=== PATIENT | female | born 1960 | race African-American/Black ===

== ENCOUNTER 2016-07-04 17:28 | Inpatient (IN) | payer MEDICARE, MEDICAID ==
[~2016-07-04] VITALS: Ht 160 cm; Wt 79.0 kg
[~2016-07-04 17:28] MED LIST: ATEN50TA PO; BACL20TA PO; DICL75TA2 PO; GABA300C8 PO; HYDR-4072 PO; LOSA50TA6 PO; METF-314 PO; SIMV-8 PO
[2016-07-04 18:11] LABS: Basophils # (auto) 0.1 uL; Eosinophils # (auto) 0.2 uL; Hemoglobin 14.3 g/dL (12.2-16.2); Mean Corpuscular Hemoglobin 31.3 pg (28.0-32.0); Mean Corpuscular Hgb Conc. 32.3 g/dL (32.0-36.0)
[2016-07-04] MEDS ORDERED: SODIUM CHLORIDE 0.9% 1,000 ML IV ONE (18:25)
[2016-07-04 18:29] LABS: Albumin 3.8 g/dL (3.4-5.0); BUN/Creatinine Ratio 13.2; Calcium 10.1 mg/dL (8.5-10.1); Potassium 4.3 mmol/L (3.5-5.1)
[2016-07-04 18:30] LABS: Basophils % (auto) 0.9 % (0.0-2.0); Eosinophils % (auto) 2.3 % (0.0-7.0); Hematocrit 44.3 % (36.0-46.0); Lymphocytes # (auto) 4.7 uL; Lymphocytes % (auto) 49.6 % (10.0-50.0); Mean Corpuscular Volume 96.8 fL (80.0-100.0); Mean Platelet Volume 8.6 fL (7.4-10.4); Monocytes # (auto) 0.6 uL; Monocytes % (auto) 6.3 % (0.0-12.0); Neutrophils # (auto) 3.9 uL; Neutrophils % (auto) 40.9 % (37.0-80.0); Platelet Count (auto) 307 10^3/uL (140-450); Red Cell Distribution Width 15.4 % (11.6-16.0); White Blood Cell 9.6 10^3/uL (4.4-10.8)
[2016-07-04] MEDS ORDERED: metroNIDAZOLE 500 MG TAB PO ONE (18:30)
[2016-07-04] MEDS ORDERED: PIPERACILLIN-TAZOB 3.375GM 100 ML IV ONE (18:30)
[2016-07-04 18:31] LABS: Bilirubin, Total 0.3 mg/dL (0.2-1.0); Total Protein 7.1 g/dL (6.4-8.2)
[2016-07-04 18:42] LABS: Urine Bilirubin Negative (Negative); Urine Blood Negative /uL (Negative); Urine Color Yellow (Yellow); Urine Ketone Negative (Negative); Urine Nitrite Negative (Negative); Urine RBC 1 /hpf (0 - 4); Urine Squamous Epithelial Cell FEW /hpf (<5); Urine Urobilinogen Normal (Negative)
[2016-07-04 18:48] LABS: Urine Glucose 4+ mg/dL (Normal)
[2016-07-04] MEDS ORDERED: HYDROcodone-ACET 5/325MG TAB PO ONE (20:00)
[2016-07-04 20:36] LABS: REFLEX LACTIC ACID YES OR NO YES
[2016-07-04] MEDS: SODIUM CHLORIDE 0.9% 1,000 ML IV SCH (21:09)
[2016-07-04] MEDS: ENOXAPARIN SOD 30 MG/0.3 ML SYRINGE SC SCH (21:14)
[2016-07-04] MEDS ORDERED: DEXTROSE (50%) 50ML SYRG IV PRN (21:15)
[2016-07-04] MEDS ORDERED: HYDROmorphone HCL 2 MG/ML VL IV ONE (21:15)
[2016-07-04] MEDS ORDERED: LACTULOSE 20Gm/30ML SOLN PO PRN (21:15)
[2016-07-04] MEDS ORDERED: ONDANSETRON HCL 4 MG/2 ML VIAL IV PRN (21:15)
[2016-07-04] MEDS ORDERED: VANCOMYCIN 1GM/250ML D5W 250 ML IV ONE (21:15)
[2016-07-04] MEDS ORDERED: VANCOMYCIN PER PHARMACY 0 MG IV SCH (21:15)
[2016-07-04] MEDS ORDERED: BACLOFEN 10 MG TAB PO PRN (21:15)
[2016-07-04] MEDS: VANCOMYCIN 1GM/250ML D5W 250 ML IV SCH (21:44)
[2016-07-04] MEDS: GABAPENTIN 300 MG CAP PO SCH (21:44)
[2016-07-04] MEDS: ATORVASTATIN 20 MG TAB PO SCH (21:44)
[2016-07-04 22:09] LABS: Lactic Acid 3.7 mmol/L (0.4-2.0)
[2016-07-04 22:32] LABS: REFLEX LACTIC ACID YES OR NO YES
[2016-07-04 23:00] VITALS: BP 125/83
[2016-07-05 00:16] VITALS: BP 125/83
[2016-07-05] MEDS: PIPERACILLIN-TAZOB 2.25GM 50 ML IV SCH ×4 (01:21→19:00)
[2016-07-05] MEDS: HYDROmorphone HCL 2 MG/ML VL IV PRN ×5 (03:48→23:13)
[2016-07-05 05:56] VITALS: BP 99/74
[2016-07-05] MEDS: InsuLIN REG 1unit/0.01ml Soln (100units/ml) SC SCH ×4 (06:00→18:00)
[2016-07-05] MEDS: ACCU-CHEK COMFORT CURVE STRIP VI SCH ×4 (06:00→18:16)
[2016-07-05 06:30] LABS: Potassium 3.7 mmol/L (3.5-5.1)
[2016-07-05] MEDS: GABAPENTIN 300 MG CAP PO SCH ×3 (06:30→22:34)
[2016-07-05 06:36] LABS: Albumin 3.3 g/dL (3.4-5.0); BUN/Creatinine Ratio 13.7; Calcium 9.1 mg/dL (8.5-10.1)
[2016-07-05 06:38] LABS: Bilirubin, Total 0.6 mg/dL (0.2-1.0); Total Protein 6.1 g/dL (6.4-8.2)
[2016-07-05 06:43] LABS: Basophils # (auto) 0 uL; Basophils % (auto) 0.5 % (0.0-2.0); Eosinophils # (auto) 0.2 uL; Eosinophils % (auto) 2.6 % (0.0-7.0); Hemoglobin 13.1 g/dL (12.2-16.2); Lymphocytes % (auto) 51.6 % (10.0-50.0); Mean Corpuscular Hemoglobin 31.5 pg (28.0-32.0); Mean Corpuscular Hgb Conc. 32.8 g/dL (32.0-36.0); Mean Platelet Volume 8.2 fL (7.4-10.4); Monocytes # (auto) 0.8 uL; Monocytes % (auto) 10.2 % (0.0-12.0); Neutrophils # (auto) 2.7 uL; Neutrophils % (auto) 35.1 % (37.0-80.0); Platelet Count (auto) 256 10^3/uL (140-450); Red Cell Distribution Width 15.6 % (11.6-16.0); White Blood Cell 7.8 10^3/uL (4.4-10.8)
[2016-07-05 07:38] VITALS: BP 103/59
[2016-07-05] MEDS: VANCOMYCIN 1GM/250ML D5W 250 ML IV SCH ×2 (09:51→22:34)
[2016-07-05] MEDS: LOSARTAN POTASSIUM 50 MG TAB PO SCH (09:53)
[2016-07-05] MEDS: ENOXAPARIN SOD 30 MG/0.3 ML SYRINGE SC SCH (09:54)
[2016-07-05] MEDS: ATENOLOL 50 MG TAB PO SCH (09:54)
[2016-07-05] MEDS: SODIUM CHLORIDE 0.9% 1,000 ML IV SCH ×2 (10:06→22:35)
[2016-07-05 12:00] VITALS: BP 109/89
[2016-07-05] MEDS ORDERED: ASPirin 81 mg TAB PO ONE ×2 (14:30→15:00)
[2016-07-05] MEDS ORDERED: ASCORBIC ACID 500 MG TAB PO ONE (15:00)
[2016-07-05] MEDS: HYDROcodone-ACET 5/325MG TAB PO PRN ×2 (16:40→21:11)
[2016-07-05 16:57] VITALS: BP 94/60
[2016-07-05] MEDS: INSULIN 70/30 1unit/0.01ml Susp (100units/ml) SC SCH (18:22)
[2016-07-05] MEDS ORDERED: PROM25TA5 OR (19:47)
[2016-07-05] MEDS ORDERED: MIRT30TA OR (19:47)
[2016-07-05] MEDS ORDERED: DIPH25CA66 PO (19:47)
[2016-07-05] MEDS ORDERED: ALPR2TAB2 PO (19:47)
[2016-07-05] MEDS: ATORVASTATIN 20 MG TAB PO SCH (22:34)
[2016-07-06] MEDS: ACCU-CHEK COMFORT CURVE STRIP VI SCH ×5 (00:03→22:25)
[2016-07-06] MEDS: PIPERACILLIN-TAZOB 2.25GM 50 ML IV SCH ×2 (03:24→06:33)
[2016-07-06] MEDS: HYDROmorphone HCL 2 MG/ML VL IV PRN ×5 (03:27→20:48)
[2016-07-06 05:10] VITALS: BP 92/71
[2016-07-06] MEDS: InsuLIN REG 1unit/0.01ml Soln (100units/ml) SC SCH ×5 (06:30→22:25)
[2016-07-06] MEDS: GABAPENTIN 300 MG CAP PO SCH ×3 (06:32→20:49)
[2016-07-06 08:06] LABS: Hematocrit 38.4 % (36.0-46.0); Hemoglobin 12.2 g/dL (12.2-16.2); Mean Corpuscular Hemoglobin 30.7 pg (28.0-32.0); Mean Corpuscular Hgb Conc. 31.7 g/dL (32.0-36.0); Mean Platelet Volume 8.2 fL (7.4-10.4); Platelet Count (auto) 228 10^3/uL (140-450); Red Cell Distribution Width 15.7 % (11.6-16.0); White Blood Cell 5.9 10^3/uL (4.4-10.8)
[2016-07-06 08:10] LABS: Metamyelocytes % 0; Myelocytes % 0; Promyelocytes % 0; Reactive Lymphocytes 0
[2016-07-06] MEDS: INSULIN 70/30 1unit/0.01ml Susp (100units/ml) SC SCH (08:21)
[2016-07-06 08:34] LABS: Calcium 8.5 mg/dL (8.5-10.1); Potassium 3.7 mmol/L (3.5-5.1)
[2016-07-06 09:00] VITALS: BP 91/55
[2016-07-06] MEDS: ATENOLOL 50 MG TAB PO SCH (10:00)
[2016-07-06] MEDS: LOSARTAN POTASSIUM 50 MG TAB PO SCH (10:00)
[2016-07-06] MEDS: ASCORBIC ACID 500 MG TAB PO SCH (10:27)
[2016-07-06] MEDS: ASPirin 81 mg TAB PO SCH (10:27)
[2016-07-06] MEDS: MULTIPLE VITAMIN TAB PO SCH (10:27)
[2016-07-06] MEDS: VANCOMYCIN 1GM/250ML D5W 250 ML IV SCH ×2 (10:27→20:54)
[2016-07-06] MEDS: ENOXAPARIN SOD 30 MG/0.3 ML SYRINGE SC SCH (10:27)
[2016-07-06] MEDS: SODIUM CHLORIDE 0.9% 1,000 ML IV SCH (10:32)
[2016-07-06 10:40] LABS: Platelet Estimate Adequate; RBC Morphology Normal
[2016-07-06 11:03] VITALS: BP 91/55
[2016-07-06] MEDS ORDERED: cefTRIAXone 1GM/50ML D5W 50 ML IV ONE (12:00)
[2016-07-06 13:00] VITALS: BP 134/85
[2016-07-06 13:14] LABS: INR 1.04 (0.9-1.15); Partial Thromboplastin Time 27.5 sec (22.64-33.71); Prothrombin Time 10.7 sec (9.37-12.3)
[2016-07-06] MEDS: HYDROcodone-ACET 5/325MG TAB PO PRN ×2 (15:28→22:28)
[2016-07-06 17:00] VITALS: BP 138/54
[2016-07-06] MEDS: ATORVASTATIN 20 MG TAB PO SCH (20:49)
[2016-07-06 22:21] VITALS: BP 148/91
[2016-07-06] MEDS: INSULIN DETEMIR(LEVEMIR) 1unit/0.01ml Soln (100units/ml) SC SCH (22:24)
[2016-07-07] MEDS: HYDROmorphone HCL 2 MG/ML VL IV PRN ×2 (00:47→05:05)
[2016-07-07] MEDS: HYDROcodone-ACET 5/325MG TAB PO PRN ×2 (02:59→09:07)
[2016-07-07 05:11] VITALS: BP 113/78
[2016-07-07] MEDS: InsuLIN REG 1unit/0.01ml Soln (100units/ml) SC SCH (06:00)
[2016-07-07] MEDS: ACCU-CHEK COMFORT CURVE STRIP VI SCH (06:19)
[2016-07-07] MEDS: GABAPENTIN 300 MG CAP PO SCH (06:19)
[2016-07-07 09:00] VITALS: BP 133/70
[2016-07-07] MEDS ORDERED: cefTRIAXone 1GM/50ML D5W 50 ML IV SCH (09:00)
[2016-07-07] MEDS: ASPirin 81 mg TAB PO SCH (09:07)
[2016-07-07] MEDS: ASCORBIC ACID 500 MG TAB PO SCH (09:07)
[2016-07-07] MEDS: MULTIPLE VITAMIN TAB PO SCH (09:07)
[2016-07-07] MEDS: VANCOMYCIN 1GM/250ML D5W 250 ML IV SCH (09:08)
[2016-07-07] MEDS: INSULIN DETEMIR(LEVEMIR) 1unit/0.01ml Soln (100units/ml) SC SCH (09:17)
[2016-07-07 12:56] VITALS: BP_SYST 134; BP_SYST 138; BP_DIAS 75
== END 2016-07-07 14:21 | disposition home or self-care (01) | DRG 638 ==
LOC: ER 17:31 → TELE 17:32 → TELE-EAST 23:03 → EAST 07-06 19:00
PROVIDERS: ADMIT Family Medicine; ATTEND Family Medicine
DX: E10.621 Type 1 diabetes mellitus with foot ulcer (principal); L97.429 Non-pressure chronic ulcer of left heel and midfoot with unspecified severity; L03.116 Cellulitis of left lower limb; E10.10 Type 1 diabetes mellitus with ketoacidosis without coma; E78.00 Pure hypercholesterolemia, unspecified; E78.5 Hyperlipidemia, unspecified; F17.210 Nicotine dependence, cigarettes, uncomplicated; F20.9 Schizophrenia, unspecified; G89.4 Chronic pain syndrome; F32.9 Major depressive disorder, single episode, unspecified; F41.9 Anxiety disorder, unspecified; I10 Essential (primary) hypertension; J44.9 Chronic obstructive pulmonary disease, unspecified; J45.909 Unspecified asthma, uncomplicated; E10.40 Type 1 diabetes mellitus with diabetic neuropathy, unspecified; Z87.442 Personal history of urinary calculi; L89.629 Pressure ulcer of left heel, unspecified stage; Z91.19 Patient's noncompliance with other medical treatment and regimen; Z88.8 Allergy status to other drugs, medicaments and biological substances; Z79.899 Other long term (current) drug therapy; Z98.51 Tubal ligation status
CPT/HCPCS: 36415; 71010; 80048; 80053; 80202; 81001; 82962; 83036; 83605; 84484; 85007; 85025; 85027; 85610; 85730; 87040; 93923; 96365; 96375; J0696; J1815; J2543

== ENCOUNTER 2017-07-08 11:04 | Emergency (ER) | payer MEDICARE, MEDICAID ==
[~2017-07-08] VITALS: Ht 160 cm; Wt 59.0 kg
[~2017-07-08 11:04] MED LIST changes: +ALPR2TAB2 PO; -ATEN50TA PO; -DICL75TA2 PO; +DIPH25CA66 PO; +GABA300C10 PO; -GABA300C8 PO; -HYDR-4072 PO; +HYDR-4683 PO; +HYDR2TAB58 PO; +LEVO250T45 PO; +MET50T PO; -METF-314 PO; +METF-371 PO; +MIRT30TA OR; +PROM25TA5 OR; +SACC250C PO
[2017-07-08] MEDS ORDERED: SODIUM CHLORIDE 0.9% 1,000 ML IV ONE (11:10)
[2017-07-08] MEDS ORDERED: KETOROLAC TROMETH 30 MG/ML 1ML VIAL IV ONE (11:15)
[2017-07-08 11:21] VITALS: BP 179/103
[2017-07-08 12:30] LABS: Basophils # (auto) 0 uL; Basophils % (auto) 0.6 % (0.0-2.0); Eosinophils # (auto) 0.1 uL; Eosinophils % (auto) 1.7 % (0.0-7.0); Hematocrit 35.2 % (36.0-46.0); Hemoglobin 11.7 g/dL (12.2-16.2); Lymphocytes # (auto) 2.6 uL; Lymphocytes % (auto) 39.6 % (10.0-50.0); Mean Corpuscular Hemoglobin 31.9 pg (28.0-32.0); Mean Corpuscular Hgb Conc. 33.1 g/dL (32.0-36.0); Mean Corpuscular Volume 96.1 fL (80.0-100.0); Monocytes # (auto) 0.4 uL; Monocytes % (auto) 6.6 % (0.0-12.0); Neutrophils # (auto) 3.4 uL; Neutrophils % (auto) 51.5 % (37.0-80.0); Nucleated Red Blood Cells % 0.1 %; Platelet Count (auto) 214 10^3/uL (140-450); Red Blood Cells 3.67 10^6/uL (4.0-5.20); White Blood Cell 6.7 10^3/uL (4.4-10.8)
[2017-07-08 12:51] LABS: Urine Amorphous Crystal FEW /hpf (None Seen); Urine Bacteria FEW /hpf (None Seen); Urine Blood Negative /uL (Negative); Urine Specific Gravity 1.018 (1.001-1.035); Urine WBC 8 /hpf (0 - 5)
[2017-07-08 13:10] LABS: Anion Gap 10 (5-15); Blood Urea Nitrogen 7 mg/dL (7-18); Carbon Dioxide 25 mmol/L (21-32); Chloride 111 mmol/L (98-107); Glucose 155 mg/dL (74-106); Potassium 3.7 mmol/L (3.5-5.1); Sodium 146 mmol/L (136-145)
[2017-07-08 13:11] LABS: Alanine Aminotransferase 10 U/L (13-56); Alkaline Phosphatase 68 U/L (45-117); Aspartate Aminotransferase 6 U/L (15-37); BUN/Creatinine Ratio 8.9; Bilirubin, Total 0.3 mg/dL (0.2-1.0); Calcium 8.7 mg/dL (8.5-10.1); GFR African American 96 mL/min; GFR Non-African American 79 mL/min
[2017-07-08 13:12] LABS: Albumin 2.9 g/dL (3.4-5.0)
[2017-07-08] MEDS ORDERED: HYDROcodone-ACET 10/325MG TAB PO ONE (13:30)
== END 2017-07-08 13:46 | disposition home or self-care (01) ==
LOC: EDBD 11:04 → ER 11:04
DX: R53.1 Weakness (principal); N61.0 Mastitis without abscess; G89.4 Chronic pain syndrome; J44.9 Chronic obstructive pulmonary disease, unspecified; E11.9 Type 2 diabetes mellitus without complications; I10 Essential (primary) hypertension; F17.210 Nicotine dependence, cigarettes, uncomplicated; Z98.51 Tubal ligation status; Z91.040 Latex allergy status; Z88.6 Allergy status to analgesic agent; Z79.899 Other long term (current) drug therapy
CPT/HCPCS: 36415; 71045; 80053; 81001; 83735; 84484; 85025; 93005; 94761; 96361; 96374; 99285; J1885; J7030

== ENCOUNTER 2018-09-19 18:19 | Inpatient (IN) | payer OTHER, MEDICAID ==
[~2018-09-19] VITALS: Ht 157.5 cm; Wt 64.4 kg
[~2018-09-19 18:19] MED LIST changes: +LEVO250T19 PO; -LEVO250T45 PO; +LOSA-46 PO; -LOSA50TA6 PO
[2018-09-19] MEDS ORDERED: VANCOMYCIN 1GM/250ML 250 ML IV ONE (22:45)
[2018-09-19 23:05] LABS: Urine Bacteria NONE SEEN /hpf (None Seen); Urine Blood Negative /uL (Negative); Urine Specific Gravity 1.019 (1.001-1.035); Urine WBC 6 /hpf (0 - 5)
[2018-09-19 23:19] LABS: Alcohol, Urine < 3.0 mg/dL (0-5); Amphetamine Screen, Urine NEGATIVE (NEGATIVE); Barbiturate Scree,Urine NEGATIVE (NEGATIVE); Benzodiazephine Screen, Urine POSITIVE (NEGATIVE); Cannabinoid Screen, Urine NEGATIVE (NEGATIVE); Cocaine Screen, Urine NEGATIVE (NEGATIVE); Opiate Scree,Urine POSITIVE (NEGATIVE); Phencyclidine Screen, Urine NEGATIVE (NEGATIVE)
[2018-09-19 23:41] LABS: Basophils # (auto) 0.1 uL; Basophils % (auto) 0.9 % (0.0-2.0); Eosinophils # (auto) 0.1 uL; Eosinophils % (auto) 1.4 % (0.0-7.0); Hematocrit 46.9 % (36.0-46.0); Hemoglobin 15.4 g/dL (12.2-16.2); Lymphocytes # (auto) 1.9 uL; Lymphocytes % (auto) 29.5 % (10.0-50.0); Mean Corpuscular Hemoglobin 32.9 pg (28.0-32.0); Mean Corpuscular Hgb Conc. 32.8 g/dL (32.0-36.0); Mean Corpuscular Volume 100.2 fL (80.0-100.0); Monocytes # (auto) 0.6 uL; Monocytes % (auto) 8.5 % (0.0-12.0); Neutrophils # (auto) 3.9 uL; Neutrophils % (auto) 59.7 % (37.0-80.0); Platelet Count (auto) 236 10^3/uL (140-450); Red Blood Cells 4.69 10^6/uL (4.0-5.20); Red Cell Distribution Width 14.3 % (11.8-14.3); White Blood Cell 6.5 10^3/uL (4.4-10.8)
[2018-09-20 00:03] LABS: Albumin 3.5 g/dL (3.4-5.0); BUN/Creatinine Ratio 7.1; Calcium 10.2 mg/dL (8.5-10.1); Potassium 4.3 mmol/L (3.5-5.1)
[2018-09-20 00:06] LABS: Bilirubin, Total 0.8 mg/dL (0.2-1.0); Total Protein 7.6 g/dL (6.4-8.2)
[2018-09-20] MEDS ORDERED: ACETAMINOPHEN 500 MG TAB PO PRN (01:45)
[2018-09-20] MEDS ORDERED: DEXTROSE (50%) 50ML SYRG IV PRN (01:45)
[2018-09-20] MEDS ORDERED: ONDANSETRON HCL 4 MG/2 ML VIAL IV PRN (01:45)
[2018-09-20] MEDS ORDERED: cloNIDine HCL 0.1 MG TAB PO PRN (01:45)
[2018-09-20] MEDS ORDERED: VANCOMYCIN PER PHARMACY 0 MG IV SCH (01:45)
[2018-09-20 03:15] VITALS: BP 111/75
--- NOTE | 2018-09-20 03:15 | NUR ---
MedSurg admit from FABIANO [facility] admitted to MedSurg unit, No SBAR received. Patient oriented to Annemarie Humphrey, primary RN, unit, room, bed, and unit policies regarding patient care and visiting hours. No S/S of distress or SOB noted, pain reported of 10/10 in Left leg, will medicate per MD orders. Respirations are even and unlabored. Updated pt. on POC and instructed to call for assistance as needed, pt. verbalized understanding. Bed locked in lowest position, side rails up x2, call light within reach. Will continue to monitor Q1HR and PRN.
--- NOTE | 2018-09-20 04:00 | NUR ---
Wound care photos taken of Left leg.
[2018-09-20] MEDS: HYDROcodone-ACET 5/325MG TAB PO PRN ×3 (04:35→20:07)
[2018-09-20] MEDS: ALPRAZolam 0.5 MG TAB PO PRN ×2 (04:35→12:53)
[2018-09-20 05:00] VITALS: BP 111/75
[2018-09-20] MEDS: GABAPENTIN 300 MG CAP PO SCH ×3 (06:20→21:48)
[2018-09-20] MEDS: ACCU-CHEK COMFORT CURVE STRIP VI SCH ×4 (06:20→21:55)
[2018-09-20] MEDS: InsuLIN REG 1unit/0.01ml Soln (100units/ml) SC SCH ×4 (06:22→21:50)
--- NOTE | 2018-09-20 07:50 | NUR ---
Opening Shift Note Assumed care of patient, patient sleeping. No S/S of distress/SOB or pain. Will continue to monitor for changes Q1hr and PRN. Bed in lowest locked position, call light within reach.
[2018-09-20 08:00] VITALS: BP 116/81
[2018-09-20] MEDS: cefTRIAXone 1GM/50ML D5W 50 ML IV SCH (09:23)
[2018-09-20] MEDS: LOSARTAN POTASSIUM 50 MG TAB PO SCH (09:26)
[2018-09-20] MEDS: METOPROLOL TARTRATE 50 MG TAB PO SCH ×2 (09:27→21:49)
[2018-09-20 10:47] LABS: Basophils # (auto) 0 uL; Basophils % (auto) 0.7 % (0.0-2.0); Eosinophils # (auto) 0.1 uL; Eosinophils % (auto) 1.2 % (0.0-7.0); Hemoglobin 14.9 g/dL (12.2-16.2); Lymphocytes # (auto) 1.8 uL; Mean Corpuscular Hemoglobin 33.5 pg (28.0-32.0); Mean Corpuscular Hgb Conc. 33.8 g/dL (32.0-36.0); Mean Corpuscular Volume 99.2 fL (80.0-100.0); Monocytes # (auto) 0.6 uL; Monocytes % (auto) 9.7 % (0.0-12.0); Neutrophils % (auto) 61.4 % (37.0-80.0); Nucleated Red Blood Cells % 0.1 %; Platelet Count (auto) 240 10^3/uL (140-450); Red Blood Cells 4.44 10^6/uL (4.0-5.20); Red Cell Distribution Width 13.8 % (11.8-14.3); White Blood Cell 6.6 10^3/uL (4.4-10.8)
[2018-09-20 10:51] LABS: Calcium 9.8 mg/dL (8.5-10.1)
[2018-09-20 10:54] LABS: BUN/Creatinine Ratio 7.6; Bilirubin, Total 0.6 mg/dL (0.2-1.0); Total Protein 6.7 g/dL (6.4-8.2)
--- NOTE | 2018-09-20 11:12 | NUR ---
WOUND CARE NOTE: Wound care in to see patient per wound care request regarding "Left leg ulcer" that are noted present on admission. Bedside nurse took photograph of patient's wounds upon admission for reference. Patient is 57 years old female with admitting diagnosis of Left Leg Ulcer. Patient is resting in Rm. 222B. She's awake, alert oriented. She's in no stated pain at this time. She reported that she's ambulatory and she sometimes uses cane. She's self turn and reposition and her current Ubaldo score is 20. Noted patient's L lateral lower leg (9.5x3.5cm) and L anteromedial lower leg (9x7cm) has open ulceration with brown scabs, yellow slough and serum blisters. Angela wound is red, minimal serous drainage noted,no odor noted. Her Lt leg has mild edema and erythema in comparison to RLE. She reported that Lt lower leg wounds started "last Friday,started as blisters, opened and drain. Patient is Diabetic but denies any trauma to LLE, denies insect bites. She reported that in 2017 she has history of ulceration to L heel that she almost lost her foot but "saved by Dr. Chavez". Patient's bilateral heels has hyperpigmented skin, pedal pulse present. Cleansed patient's left lower leg wounds with wound cleanser, patted dry with sterile gauze, applied Thera honey gel, covered with non-adherent gauze (Telfa) wrapped with Kerlix, secured with tape, further secured with stockinette as MD ordered. Patient tolerated well. No pressure injury related issue noted. Patient's education given regarding skin/wound care,verbalized understanding. Bed in low position,call brand within reach, all safety precautions in placed. RECOMMENDATION: EOD/PRN dressing change to LLE wounds per MD order,Podiatry consult, Dietary consult due to presence of wound, redistribute pressure points with pillows, elevate affected extremity on pillow, continue monitoring by wound care while patient is hospitalized. Addendum: 09/20/18 at 1728 by Chrissy Nolen RN Amended: Links added.
--- NOTE | 2018-09-20 11:15 | NUR ---
WOUND CARE ICT SECURITY SPECIALIST AT BEDSIDE.
[2018-09-20 12:30] VITALS: BP 132/81
--- NOTE | 2018-09-20 12:42 | NUR ---
MD AT BEDSIDE DR. Abbi MEDRANO AT BEDSIDE DISCUSSING POC WITH PATIENT. PATIENT REQUESTING SOMETHING TO HELP WITH A BOWEL MOVEMENT SINCE SHE HAS NOT GONE SINCE 09/10/18 AND A NICOTINE PATCH. PER MD, PATIENT TO GET LACTULOSE 30 PO AND NICOTINE PATCH 21MG DAILY. ORDERS READ BACK AND VERIFIED.
[2018-09-20] MEDS ORDERED: LACTULOSE 20Gm/30ML SOLN PO PRN (13:00)
[2018-09-20] MEDS ORDERED: NICOTINE 21MG/24 HR TOPICAL PATCH TD ONE (13:15)
[2018-09-20 17:00] VITALS: BP 130/95
--- NOTE | 2018-09-20 18:35 | NUR ---
END OF SHIFT PATIENT RESTING IN BED. NO S/S OF DISTRESS. INSTRUCTED PATIENT TO CALL PRN. BED IN LOWEST LOCKED POSITION, CALL LIGHT WITHIN REACH. ENDORSED CARE TO LEONID AGUILLON.
--- NOTE | 2018-09-20 19:20 | NUR ---
OPENING NOTE Received report from day shift RN. Patient is A&O X's 4 with no s/s of distress. Patient reports pain 10/10. Educated patient on pain medications and pain management/POC/to use call light when in need of assistance. Patient verbalized understanding. Provided patient with hygiene items at this time. Bed is in lowest/locked position with side rails up X's 2. Will continue to monitor and round hourly/PRN
[2018-09-20 22:00] VITALS: BP 134/83
[2018-09-20] MEDS ORDERED: MIRTAZAPINE 30 MG TAB PO SCH (22:00)
[2018-09-20] MEDS ORDERED: LACTULOSE 20Gm/30ML SOLN PO SCH (22:00)
[2018-09-20] MEDS: VANCOMYCIN 1GM/250ML 250 ML IV SCH (22:58)
[2018-09-21] MEDS ORDERED: HYDROmorphone HCL 2 MG/ML VL IV ONE (00:15)
[2018-09-21] MEDS: HYDROcodone-ACET 5/325MG TAB PO PRN ×2 (00:55→06:38)
[2018-09-21] MEDS: ALPRAZolam 0.5 MG TAB PO PRN ×2 (00:55→22:16)
[2018-09-21 05:19] VITALS: BP 100/71
[2018-09-21] MEDS: GABAPENTIN 300 MG CAP PO SCH ×3 (06:38→21:23)
[2018-09-21] MEDS: InsuLIN REG 1unit/0.01ml Soln (100units/ml) SC SCH ×4 (06:39→21:34)
[2018-09-21] MEDS: ACCU-CHEK COMFORT CURVE STRIP VI SCH ×4 (06:41→21:34)
--- NOTE | 2018-09-21 07:08 | NUR ---
Opening Shift Note Assumed care of patient, awake and alert. No S/S of distress/SOB or pain. Instructed on POC and to call for assist PRN, will continue to monitor for changes Q1hr and PRN.
[2018-09-21 09:00] VITALS: BP 128/95
[2018-09-21 09:31] LABS: Calcium 9.4 mg/dL (8.5-10.1); Potassium 3.7 mmol/L (3.5-5.1)
[2018-09-21 09:35] LABS: BUN/Creatinine Ratio 10.8; Bilirubin, Total 0.4 mg/dL (0.2-1.0); Total Protein 6.6 g/dL (6.4-8.2)
[2018-09-21] MEDS: LOSARTAN POTASSIUM 50 MG TAB PO SCH (10:00)
[2018-09-21] MEDS: NICOTINE 21MG/24 HR TOPICAL PATCH TD SCH (10:00)
--- NOTE | 2018-09-21 10:21 | NUR ---
MD rounded with patient. MD at bedside assessing patient's wounds. MD ordered to speak with Bella Whitman to obtain PCP. Spoke with Bella Whitman. Bella will see patient later this afternoon to arrange PCP.
[2018-09-21] MEDS ORDERED: TEMAZEPAM 15 MG CAP PO PRN (10:30)
[2018-09-21] MEDS ORDERED: TEMAZEPAM 15 MG CAP PO ONE (10:30)
[2018-09-21] MEDS: cefTRIAXone 1GM/50ML D5W 50 ML IV SCH (10:33)
[2018-09-21] MEDS: METOPROLOL TARTRATE 50 MG TAB PO SCH ×2 (10:34→21:23)
--- NOTE | 2018-09-21 10:48 | NUR ---
assessment Per consult need PCP. Bella Smith will see patient today with PCP information. Addendum: 09/21/18 at 1049 by Bella Weston Amended: Links added.
[2018-09-21] MEDS: HYDROcodone-ACET 10/325MG TAB PO PRN ×3 (11:59→21:31)
--- NOTE | 2018-09-21 12:41 | NUR ---
NUTRITION CONSULT/ASSESSMENT NOTES Please refer to link notes of nutrition screen form filed under the intervention section of the plan of care for further details. Est. Needs: 1300 kcal to 1600 kcal (25-30 kcal/kgBW), 51 gms to 64 gms pro (0.8-1.0 gms/kgBW). Will continue to monitor pertinent labs and reassess nutrient need prn Thank you for this consult. Addendum: 09/21/18 at [address] Amended: Links added.
[2018-09-21 13:00] VITALS: BP 122/82
--- NOTE | 2018-09-21 15:30 | NUR ---
FYI-patient was previously on service with [facility].
[2018-09-21 17:00] VITALS: BP 120/77
--- NOTE | 2018-09-21 19:25 | NUR ---
Change of shift given to night auditor RN. No distress noted.
--- NOTE | 2018-09-21 20:00 | NUR ---
Opening shift note Patient in bed alert and oriented x 4, verbally coherent able to make needs known. Patient complained of pain to left leg ulcer, reminded patient pain medication given by morning shift nurse and not yet due to be given at this time. Plan of care discussed and PRN medication availability time discussed. Patient verbalized understanding. All needs attended, will continue to monitor.
[2018-09-21 21:48] VITALS: BP 145/85
[2018-09-21] MEDS: VANCOMYCIN 1GM/250ML 250 ML IV SCH (23:38)
[2018-09-22 05:00] VITALS: BP 131/82
[2018-09-22] MEDS: GABAPENTIN 300 MG CAP PO SCH (06:14)
[2018-09-22] MEDS: InsuLIN REG 1unit/0.01ml Soln (100units/ml) SC SCH ×2 (06:15→12:16)
[2018-09-22] MEDS: ACCU-CHEK COMFORT CURVE STRIP VI SCH ×2 (06:15→12:13)
[2018-09-22 08:00] VITALS: BP 112/73
[2018-09-22 09:00] VITALS: BP 112/73
[2018-09-22 09:18] LABS: Albumin 2.9 g/dL (3.4-5.0); Calcium 9.3 mg/dL (8.5-10.1); Potassium 4.2 mmol/L (3.5-5.1)
[2018-09-22 09:23] LABS: Bilirubin, Total 0.3 mg/dL (0.2-1.0); Total Protein 6.4 g/dL (6.4-8.2)
[2018-09-22] MEDS: cefTRIAXone 1GM/50ML D5W 50 ML IV SCH (09:48)
[2018-09-22] MEDS: LOSARTAN POTASSIUM 50 MG TAB PO SCH (09:49)
[2018-09-22] MEDS: METOPROLOL TARTRATE 50 MG TAB PO SCH ×2 (09:49→12:00)
[2018-09-22] MEDS: HYDROcodone-ACET 10/325MG TAB PO PRN (09:50)
[2018-09-22] MEDS: NICOTINE 21MG/24 HR TOPICAL PATCH TD SCH (09:50)
[2018-09-22 12:04] VITALS: BP 112/73
[2018-09-22] MEDS: ALPRAZolam 0.5 MG TAB PO PRN (12:09)
[2018-09-22 13:00] VITALS: BP 132/87
--- NOTE | 2018-09-22 14:15 | NUR ---
PATIENT DISCHARGED HOME WITH ALL DISCHARGE INSTRUCTIONS RECEIVED AND ALL DISCHARGE PAPERWORK SIGNED. PATIENT ALERT AND ORIENTED. PATIENT REFUSED WHEELCHAIR OUT AND REFUSED ESCORT.
== END 2018-09-22 14:15 | disposition home or self-care (01) | DRG 593 ==
LOC: ER 18:19 → OVERFLOW 09-20 01:38 → CENTRAL 09-20 03:05
PROVIDERS: ADMIT Nurse Practitioner Family; ATTEND Family Medicine
DX: L97.929 Non-pressure chronic ulcer of unspecified part of left lower leg with unspecified severity (principal); N39.0 Urinary tract infection, site not specified; E11.65 Type 2 diabetes mellitus with hyperglycemia; E78.5 Hyperlipidemia, unspecified; F20.9 Schizophrenia, unspecified; F32.9 Major depressive disorder, single episode, unspecified; F41.9 Anxiety disorder, unspecified; I10 Essential (primary) hypertension; K21.9 Gastro-esophageal reflux disease without esophagitis; E11.40 Type 2 diabetes mellitus with diabetic neuropathy, unspecified; Z76.5 Malingerer [conscious simulation]; Z88.5 Allergy status to narcotic agent; Z88.8 Allergy status to other drugs, medicaments and biological substances; Z79.84 Long term (current) use of oral hypoglycemic drugs
CPT/HCPCS: 36415; 80053; 80307; 81001; 82962; 83036; 83605; 85025; 87040; 87077; 87081; 87086; 87186; 87205; 93926; 93971; 94761; 96365; 96367; 96372; G0378; J0696; J1815

== ENCOUNTER 2020-04-12 18:49 | Inpatient (IN) | payer OTHER, MEDICAID ==
[~2020-04-12] VITALS: Ht 167.6 cm; Wt 76.2 kg
[~2020-04-12 18:49] MED LIST changes: -HYDR-4683 PO; +HYDR-4833 PO; -LOSA-46 PO; +LOSA-69 PO
[2020-04-12] MEDS ORDERED: SODIUM CHLORIDE 0.9% 1,000 ML IV ONE (22:45)
[2020-04-12] MEDS ORDERED: HALOPERIDOL LACTATE 5 MG/ML INJ VIAL IM ONE ×2 (23:45)
[2020-04-13 01:19] LABS: Basophils # (auto) 0.1 10 ^3/uL (0-0.2); Basophils % (auto) 1.1 % (0.0-2.0); Eosinophils # (auto) 0.1 10 ^3/uL (0-0.8); Eosinophils % (auto) 0.7 % (0.0-7.0); Hematocrit 46.8 % (36.0-46.0); Hemoglobin 15.5 g/dL (12.2-16.2); Lymphocytes # (auto) 4.2 10 ^3/uL (0.4-5.4); Lymphocytes % (auto) 41.1 % (10.0-50.0); Mean Corpuscular Hemoglobin 31.8 pg (28.0-32.0); Mean Corpuscular Volume 96.1 fL (80.0-100.0); Monocytes % (auto) 10.3 % (0.0-12.0); Neutrophils # (auto) 4.8 10 ^3/uL (1.6-8.6); Neutrophils % (auto) 46.8 % (37.0-80.0); Nucleated Red Blood Cells % 0.2 %; Platelet Count (auto) 348 10^3/uL (140-450); Red Blood Cells 4.87 10^6/uL (4.0-5.20); White Blood Cell 10.2 10^3/uL (4.4-10.8)
[2020-04-13 01:46] LABS: Albumin 3.9 g/dL (3.4-5.0); Anion Gap 9 (5-15); BUN/Creatinine Ratio 23.1; Blood Urea Nitrogen 31 mg/dL (7-18); Calcium 11.4 mg/dL (8.5-10.1); Carbon Dioxide 23 mmol/L (21-32); Chloride 117 mmol/L (98-107); GFR African American 52 mL/min; GFR Non-African American 43 mL/min; Glucose 175 mg/dL (74-106); Potassium 4.1 mmol/L (3.5-5.1); Sodium 149 mmol/L (136-145)
[2020-04-13 01:51] LABS: Alanine Aminotransferase 20 U/L (13-56); Alkaline Phosphatase 81 U/L (45-117); Aspartate Aminotransferase 19 U/L (15-37); Bilirubin, Total 1.6 mg/dL (0.2-1.0); Total Protein 8.8 g/dL (6.4-8.2)
[2020-04-13] MEDS ORDERED: SODIUM CHLORIDE 0.9% 1,000 ML IV ONE (03:30)
[2020-04-13 03:46] LABS: Urine Amorphous Crystal FEW /hpf (None Seen); Urine Bacteria FEW /hpf (None Seen); Urine Blood Negative /uL (Negative); Urine Mucus FEW (None Seen); Urine Specific Gravity 1.026 (1.001-1.035); Urine WBC 6 /hpf (0 - 5)
[2020-04-13] MEDS ORDERED: hydrALAZINE HCL 20 MG/ML VL IV ONE (04:15)
[2020-04-13 04:21] LABS: Alcohol, Urine < 3.0 mg/dL (0-10); Amphetamine Screen, Urine NEGATIVE (NEGATIVE); Barbiturate Scree,Urine NEGATIVE (NEGATIVE); Benzodiazephine Screen, Urine POSITIVE (NEGATIVE); Cannabinoid Screen, Urine NEGATIVE (NEGATIVE); Cocaine Screen, Urine NEGATIVE (NEGATIVE); Opiate Scree,Urine NEGATIVE (NEGATIVE); Phencyclidine Screen, Urine NEGATIVE (NEGATIVE)
[2020-04-13] MEDS ORDERED: NITROGLYCERIN 0.4 MG SL TAB SL PRN (04:30)
[2020-04-13] MEDS ORDERED: ONDANSETRON HCL 4 MG/2 ML VIAL IV PRN (04:30)
[2020-04-13] MEDS ORDERED: DEXTROSE (50%) 50ML SYRG IV PRN (04:30)
[2020-04-13] MEDS ORDERED: LABETALOL HCL 5 MG/ML 4ML SYRINGE IV ONE (04:30)
[2020-04-13] MEDS ORDERED: MORPHINE SULF INJ 2 MG/ML SYRINGE 1ML IV PRN (04:30)
[2020-04-13] MEDS: SOD CHL 0.45% 1,000 ML IV SCH ×2 (05:28→17:53)
[2020-04-13] MEDS ORDERED: GABAPENTIN 300 MG CAP PO SCH (06:00)
[2020-04-13] MEDS: ACCU-CHEK COMFORT CURVE STRIP VI SCH ×4 (07:02→22:29)
[2020-04-13] MEDS: InsuLIN REG 1unit/0.01ml Soln (100units/ml) SC SCH ×4 (07:03→22:29)
--- NOTE | 2020-04-13 08:55 | NUR ---
Telemetry admit from ZANDRA UNDERWOOD admitted to Telemetry unit after SBAR received. Patient oriented to Trixie Menendez, primary RN, unit, room, bed, and unit policies regarding patient care and visiting hours. Patient is non verbal and restless. Patient now on continuous telemetry monitoring, tele box #84 and telemetry reading on arrival to unit is ST-115. Patient placed on bedside oxygen, weighed by bedscale. Sitter at bedside. Spoke with daughter aSra for history taking and lists of home medications. Will continue to monitor.
[2020-04-13 09:00] VITALS: BP_SYST 127; BP_DIAS 40; BP_DIAS 74
[2020-04-13] MEDS ORDERED: LOSARTAN POTASSIUM 50 MG TAB PO SCH (10:00)
[2020-04-13] MEDS: PANTOPRAZOLE 40 MG TAB PO SCH (10:00)
[2020-04-13] MEDS ORDERED: METOPROLOL TARTRATE 50 MG TAB PO SCH (10:00)
--- NOTE | 2020-04-13 10:00 | NUR ---
THIS RN NOTIFIED THE PRIMARY RN, ALON, THAT THE PATIENT NEEDS A MRSA SWAB PER PROTOCOL. PRIMARY RN VERBALIZED UNDERSTANDING.
[2020-04-13] MEDS ORDERED: ATEN50TA PO (10:25)
[2020-04-13] MEDS ORDERED: TRAZ1TAB12 PO (10:25)
[2020-04-13] MEDS ORDERED: ALPR1TAB7 PO (10:25)
[2020-04-13] MEDS: cefTRIAXone 1GM/50ML D5W 50 ML IV SCH (10:33)
--- NOTE | 2020-04-13 11:45 | NUR ---
WOUND CARE NOTE: NOTIFIED BY BEDSIDE NURSE THAT PATIENT WITH LOW RAISA SCORE OF 12 RECENTLY ADMITTED TO [facility]. IN TO SEE PATIENT AT THIS TIME. PATIENT ADMITTED TO [facility] WITH ACUTE ENCEPHALOPATHY. SHE IS ALOC, WITH SITTER AT BEDSIDE. PATIENT AT THIS TIME IS MAX ASSIST FOR ALL OF HER ADL'S INCLUDING REPOSITIONING. PATIENT IS WOUND FREE AT THIS TIME. CURRENT RAISA SCORE IS 12. RECOMMEND: FREQUENT TURN SCHEDULE Q 2 HOURS, PRN CONDITION PERMITS, WITH PRESSURE REDISTRIBUTION USING PILLOWS/WEDGES, SPECIALTY AIR MATTRESS, SKIN/WOUND CARE PLAN, OPTIFOAM GENTLE SACRAL DRESSING PREVENTATIVE, DIETARY CONSULT FOR LOW RAISA, CONTINUED MONITORING BY WOUND CARE TEAM.
[2020-04-13 13:00] VITALS: BP 111/73
[2020-04-13] MEDS ORDERED: GABAPENTIN 300 MG CAP PEG SCH (14:00)
[2020-04-13 14:07] LABS: Magnesium 2.3 mg/dL (1.6-2.6); Phosphorus 3.4 mg/dL (2.5-4.90)
[2020-04-13 14:26] LABS: Protein, Urine 9.7 mg/dL (0.0-11.9)
[2020-04-13 15:37] LABS: Hepatitis A Ab IgM Negative
[2020-04-13 15:41] LABS: Hepatitis B Core IgM Negative
[2020-04-13 15:42] LABS: Hepatitis B Surface Antigen Negative (Negative); Hepatitis C Antibody Negative (Negative)
[2020-04-13] MEDS: Jevity 1.2 Cal/Fiber 1 Liter GT SCH (17:10)
[2020-04-13] MEDS ORDERED: LORazepam 2MG/ML-1ML VIAL IV PRN (17:30)
[2020-04-13 17:45] VITALS: BP 106/77
--- NOTE | 2020-04-13 19:15 | NUR ---
ASSUMED CARE, PT. RESTING WITH EYES CLOSED, SITTER AT BEDSIDE, NOT IN DISTRESS.
[2020-04-13 19:52] LABS: Urine Bacteria FEW /hpf (None Seen); Urine Blood 1+ /uL (Negative); Urine Mucus FEW (None Seen); Urine Specific Gravity 1.025 (1.001-1.035); Urine WBC 12 /hpf (0 - 5)
[2020-04-13] MEDS ORDERED: HALOPERIDOL LACTATE 5 MG/ML INJ VIAL IM PRN (20:00)
[2020-04-13] MEDS: GABAPENTIN 300 MG CAP PEG SCH (20:57)
[2020-04-13 21:30] VITALS: BP 134/89
[2020-04-13] MEDS: ATORVASTATIN 20 MG TAB PEG SCH (21:57)
[2020-04-13] MEDS: METOPROLOL TARTRATE 50 MG TAB PEG SCH (21:58)
[2020-04-13] MEDS: MIRTAZAPINE 30 MG TAB PO SCH (21:59)
[2020-04-13 22:00] VITALS: BP 134/89
[2020-04-13] MEDS ORDERED: ATORVASTATIN 20 MG TAB PO SCH (22:00)
--- NOTE | 2020-04-13 22:10 | NUR ---
CALLED UP FAMILY, UPDATED PT. STATUS.
[2020-04-14 05:00] VITALS: BP 100/76
[2020-04-14] MEDS: GABAPENTIN 300 MG CAP PEG SCH ×3 (05:47→20:00)
[2020-04-14] MEDS: InsuLIN REG 1unit/0.01ml Soln (100units/ml) SC SCH ×4 (06:11→21:38)
[2020-04-14] MEDS: ACCU-CHEK COMFORT CURVE STRIP VI SCH ×4 (06:11→21:34)
[2020-04-14 07:02] LABS: Basophils # (auto) 0.1 10 ^3/uL (0-0.2); Basophils % (auto) 0.8 % (0.0-2.0); Eosinophils # (auto) 0.1 10 ^3/uL (0-0.8); Eosinophils % (auto) 1.5 % (0.0-7.0); Hematocrit 44.6 % (36.0-46.0); Hemoglobin 14.4 g/dL (12.2-16.2); Lymphocytes # (auto) 3.4 10 ^3/uL (0.4-5.4); Mean Corpuscular Hgb Conc. 32.2 g/dL (32.0-36.0); Mean Corpuscular Volume 99.3 fL (80.0-100.0); Monocytes % (auto) 12.2 % (0.0-12.0); Neutrophils # (auto) 3.7 10 ^3/uL (1.6-8.6); Neutrophils % (auto) 44.5 % (37.0-80.0); Nucleated Red Blood Cells % 0.3 %; Red Blood Cells 4.49 10^6/uL (4.0-5.20); Red Cell Distribution Width 15.4 % (11.8-14.3); White Blood Cell 8.2 10^3/uL (4.4-10.8)
[2020-04-14 07:56] LABS: Platelet Count (auto) 285 10^3/uL (140-450)
[2020-04-14 08:06] LABS: Immunoglobulin G, Serum 1425 mg/dL (586-1602)
[2020-04-14 08:41] LABS: Alkaline Phosphatase 76 U/L (45-117); Anion Gap 6 (5-15); Aspartate Aminotransferase 35 U/L (15-37); BUN/Creatinine Ratio 23.5; Blood Urea Nitrogen 24 mg/dL (7-18); Carbon Dioxide 20 mmol/L (21-32); Chloride 123 mmol/L (98-107); GFR African American 71 mL/min; GFR Non-African American 59 mL/min; Glucose 202 mg/dL (74-106); Potassium 4.4 mmol/L (3.5-5.1); Sodium 149 mmol/L (136-145)
[2020-04-14 08:42] LABS: Alanine Aminotransferase 30 U/L (13-56); Albumin 3.2 g/dL (3.4-5.0); Bilirubin, Total 0.8 mg/dL (0.2-1.0); Calcium 9.7 mg/dL (8.5-10.1); Total Protein 7.5 g/dL (6.4-8.2)
[2020-04-14 09:00] VITALS: BP 114/79
[2020-04-14] MEDS ORDERED: IOHEXOL 350 MG/ML 100ML IJ ONE (11:23)
--- NOTE | 2020-04-14 12:45 | NUR ---
Nutrition Consult Pt is a consult for refusing to eat, pt is currently NPO with TF of Jevity 1.2 at 30 ml/hr Consider changing TF to Glucerna 1.2 at a goal rate of 60 ml/hr d/t to pt with previous history of DM Est energy needs 1513-5309 kcal (20-23 kcal/kg BW 76.1kg) Est protein needs 61-76g (0.8-1g/kg BW 76.1kg) Will monitor and reassess prn. Addendum: 04/14/20 at [address] Amended: Links added.
[2020-04-14 13:00] VITALS: BP 108/71
[2020-04-14] MEDS: PANTOPRAZOLE 40 MG TAB PO SCH (15:21)
[2020-04-14] MEDS: cefTRIAXone 1GM/50ML D5W 50 ML IV SCH (15:21)
[2020-04-14] MEDS: METOPROLOL TARTRATE 50 MG TAB PEG SCH ×2 (15:33→21:34)
--- NOTE | 2020-04-14 16:26 | NUR ---
PT IN ROOM RESTING. RESPONDS TO NAME, NON-VERBAL HAS NOT COMMUNICATED WITH EYES OPEN, TURNS SELF FROM SIDED TO SIDE, BUT WILL NOT GIVE EYE CONTACT. OR TRY TO SPEAK. SITTER IN ROOM. OFFERS NO OTHER NEEDS.
--- NOTE | 2020-04-14 16:58 | NUR ---
EEG-UNABLE TO PERFORM ELECTROENCEPHALOGRAM. PT RESTLESS MAKING IT IMPOSSIBLE TO COMPLETE WITHOUT ARTIFACTS. WILL ATTEMPT AGAIN, LEONID KELLY AWARE.
[2020-04-14 17:00] VITALS: BP 122/82
--- NOTE | 2020-04-14 18:31 | NUR ---
IV removal IV DC'd with sterile technique, catheter fully intact. Pressure dressing applied to site. Patient tolerated procedure well. RT AC
--- NOTE | 2020-04-14 18:33 | NUR ---
IV insertion IV access obtained, via clean sterile technique by inserting gauge catheter at after attempt(s). IV secured properly. No trauma to site. Patient tolerated procedure well.
[2020-04-14] MEDS: ATORVASTATIN 20 MG TAB PEG SCH (21:33)
[2020-04-14] MEDS: MIRTAZAPINE 30 MG TAB PO SCH (21:34)
[2020-04-14 22:00] VITALS: BP_SYST 119; BP_SYST 91; BP_DIAS 49; BP_DIAS 78
[2020-04-14] MEDS: Jevity 1.2 Cal/Fiber 1 Liter GT SCH (22:06)
[2020-04-15 04:51] VITALS: BP 114/78
[2020-04-15] MEDS: GABAPENTIN 300 MG CAP PEG SCH ×3 (05:58→20:00)
[2020-04-15] MEDS: HALOPERIDOL LACTATE 5 MG/ML INJ VIAL IM PRN ×2 (06:57→15:51)
[2020-04-15] MEDS: ACCU-CHEK COMFORT CURVE STRIP VI SCH ×3 (07:01→17:59)
[2020-04-15] MEDS: InsuLIN REG 1unit/0.01ml Soln (100units/ml) SC SCH ×3 (07:03→18:00)
--- NOTE | 2020-04-15 08:00 | NUR ---
OPENING SHIFT NOTE: PATIENT RESTING IN BED, SIDE LYING. PATIENT NON-VERBAL, DOES NOT RESPOND TO QUESTIONS OR FOLLOW COMMANDS. PATIENT ON ROOM AIR BREATHING EVEN AND UNLABORED. IV FLUSHED AND REINFORCED. [place] BELOW BLADDER, FREE OF KINKS. THIS RN ATTEMPTED TO RE-ORIENT. SITTER AT BEDSIDE FOR SAFETY. FALL PRECAUTIONS IN PLACE. CALL LIGHT WITHIN REACH. WILL CONTINUE TO MONITOR.
[2020-04-15] MEDS: cefTRIAXone 1GM/50ML D5W 50 ML IV SCH (08:13)
[2020-04-15 09:02] VITALS: BP 112/65
--- NOTE | 2020-04-15 09:15 | NUR ---
UPDATED ON PLAN OF CARE
[2020-04-15] MEDS: FUROSEMIDE 20 MG/2 ML VIAL IV SCH (10:33)
[2020-04-15] MEDS: METOPROLOL TARTRATE 50 MG TAB PEG SCH ×2 (10:34→21:24)
[2020-04-15] MEDS: PANTOPRAZOLE 40 MG TAB PO SCH (10:34)
--- NOTE | 2020-04-15 10:34 | NUR ---
FULL LINEN CHANGE COMPLETE.
--- NOTE | 2020-04-15 10:50 | NUR ---
UPDATED DAUGHTER CAROL BENDER, ON PATIENT STATUS. PASSWORD RECEIVED.
--- NOTE | 2020-04-15 10:50 | NUR ---
CONTACT: KANDIS [phone]
--- NOTE | 2020-04-15 12:21 | NUR ---
PATIENT RESPONDED VERBALLY: UPON ADMINISTRATION OF INSULIN, THIS RN EDUCATED PATIENT AND EXPLAINED INSULIN ADMINISTRATION, PATIENT STATED "YES." PATIENT ABLE TO RESPOND WITH "YES," ON OTHER QUESTIONS, BUT NO OTHER VERBAL WORDS ABLE TO BE COMPREHENDED.
[2020-04-15 13:00] VITALS: BP 110/69
[2020-04-15] MEDS ORDERED: ENOXAPARIN SOD 40 MG/0.4 ML SYRINGE SC ONE (16:00)
[2020-04-15] MEDS ORDERED: LORazepam 2MG/ML-1ML VIAL IV PRN (16:15)
[2020-04-15] MEDS ORDERED: DEXTROSE (50%) 50ML SYRG IV PRN (16:15)
[2020-04-15] MEDS ORDERED: FUROSEMIDE 20 MG/2 ML VIAL IV ONE (16:15)
[2020-04-15 16:34] VITALS: BP 146/84
[2020-04-15] MEDS: DOXYCYCLINE 100MG/250ML 250 ML IV SCH (17:59)
--- NOTE | 2020-04-15 18:43 | NUR ---
CARE ENDORSED TO NOC RN.
--- NOTE | 2020-04-15 19:00 | NUR ---
Opening Shift Note Assumed care of patient, awake and alert. No S/S of distress/SOB or pain. Instructed on POC and to call for assist PRN, will continue to monitor for changes Q1hr and PRN.
[2020-04-15] MEDS: ATORVASTATIN 20 MG TAB PEG SCH (21:24)
[2020-04-15] MEDS: MIRTAZAPINE 30 MG TAB PO SCH (21:24)
[2020-04-15] MEDS: LORazepam 2MG/ML-1ML VIAL IV SCH (21:24)
[2020-04-15] MEDS ORDERED: INSULIN LANTUS (GLARGINE) 1 /0.01ml (100units/ml) SC SCH (22:00)
[2020-04-15 22:30] VITALS: BP 119/96
[2020-04-16] MEDS: ACCU-CHEK COMFORT CURVE STRIP VI SCH ×4 (00:07→17:26)
[2020-04-16] MEDS: InsuLIN REG 1unit/0.01ml Soln (100units/ml) SC SCH ×4 (00:13→17:33)
[2020-04-16] MEDS: DOXYCYCLINE 100MG/250ML 250 ML IV SCH ×2 (03:31→16:02)
[2020-04-16 05:01] VITALS: BP 140/87
[2020-04-16] MEDS: GABAPENTIN 300 MG CAP PEG SCH ×3 (05:41→22:26)
[2020-04-16 06:30] LABS: Chloride 115 mmol/L (98-107); Sodium 148 mmol/L (136-145)
[2020-04-16 06:36] LABS: Alanine Aminotransferase 21 U/L (13-56); Albumin 3.2 g/dL (3.4-5.0); Anion Gap 6 (5-15); Aspartate Aminotransferase 18 U/L (15-37); BUN/Creatinine Ratio 18.9; Blood Urea Nitrogen 24 mg/dL (7-18); Carbon Dioxide 27 mmol/L (21-32); GFR African American 55 mL/min; GFR Non-African American 45 mL/min; Glucose 332 mg/dL (74-106)
[2020-04-16 06:38] LABS: Alkaline Phosphatase 78 U/L (45-117); Bilirubin, Total 0.6 mg/dL (0.2-1.0); Total Protein 7.8 g/dL (6.4-8.2)
[2020-04-16 07:17] LABS: Basophils # (auto) 0 10 ^3/uL (0-0.2); Basophils % (auto) 0.5 % (0.0-2.0); Eosinophils # (auto) 0.2 10 ^3/uL (0-0.8); Eosinophils % (auto) 3.2 % (0.0-7.0); Hemoglobin 14.5 g/dL (12.2-16.2); Lymphocytes # (auto) 2.4 10 ^3/uL (0.4-5.4); Mean Corpuscular Hemoglobin 30.8 pg (28.0-32.0); Mean Corpuscular Hgb Conc. 31.5 g/dL (32.0-36.0); Mean Corpuscular Volume 97.5 fL (80.0-100.0); Monocytes % (auto) 13.8 % (0.0-12.0); Neutrophils # (auto) 3.5 10 ^3/uL (1.6-8.6); Neutrophils % (auto) 49.5 % (37.0-80.0); Nucleated Red Blood Cells % 0.1 %; Platelet Count (auto) 244 10^3/uL (140-450); Red Blood Cells 4.71 10^6/uL (4.0-5.20); Red Cell Distribution Width 15.3 % (11.8-14.3); White Blood Cell 7.1 10^3/uL (4.4-10.8)
--- NOTE | 2020-04-16 07:57 | NUR ---
OPENING SHIFT NOTE: PATIENT RESTING IN BED, SIDE LYING. PATIENT NON-VERBAL, DOES NOT RESPOND TO QUESTIONS OR FOLLOW COMMANDS. PATIENT ON 2LNC BREATHING EVEN AND UNLABORED. IV FLUSHED AND REINFORCED. WITT HUNG BELOW BLADDER, FREE OF KINKS. THIS RN ATTEMPTED TO RE-ORIENT. SITTER AT BEDSIDE FOR SAFETY. FALL PRECAUTIONS IN PLACE. CALL LIGHT WITHIN REACH. WILL CONTINUE TO MONITOR.
[2020-04-16 08:58] VITALS: BP 102/72
[2020-04-16] MEDS: METOPROLOL TARTRATE 50 MG TAB PEG SCH ×2 (10:00→22:27)
[2020-04-16] MEDS: cefTRIAXone 1GM/50ML D5W 50 ML IV SCH (10:48)
[2020-04-16] MEDS: FUROSEMIDE 20 MG/2 ML VIAL IV SCH (10:49)
[2020-04-16] MEDS: PANTOPRAZOLE 40 MG TAB PO SCH (10:49)
[2020-04-16] MEDS: ENOXAPARIN SOD 40 MG/0.4 ML SYRINGE SC SCH (10:49)
[2020-04-16] MEDS: LORazepam 2MG/ML-1ML VIAL IV SCH ×2 (12:17→22:26)
[2020-04-16 13:00] VITALS: BP 101/79
--- NOTE | 2020-04-16 14:27 | NUR ---
Nutrition Followup Note Wt 78kg Pt was sleeping with no family at bedside at time of rounds. Pt is still NPO, pt was with Jevity 1.2 running at 30 ml/hr at time of rounds. Pt TF with a new order of Glucerna 1.2 at a rate of 60ml/hr Est energy needs 4604-3454 kcal (20-23 kcal/kg BW 76.1kg) Est protein needs 61-76g (0.8-1g/kg BW 76.1kg) Will monitor and reassess prn. Labs: Na 148H, BUN 24H, Creat 1.27H, Alb 3.2L, GLUC 332H BM: pt with no BM per Rn note Skin: BS 14 mod risk, full details in career services representative note PES: Inadequate oral intake r/t current medical condition aeb pt with NPO diet order Comments: 1) Continue to monitor po status, labs, skin 2) refer pt to CDE on DC 3) Continue current plan of care Expected Outcomes/Goals: 1) Continue TF to Glucerna 1.2 at a goal rate of 60 ml/hr 2) Advance diet as medically feasible 3) f/u 2-3 days
--- NOTE | 2020-04-16 16:50 | NUR ---
COVID WALKED TO LAB
[2020-04-16 17:25] VITALS: BP 129/101
--- NOTE | 2020-04-16 18:55 | NUR ---
CARE ENDORSED TO BEATA JAQUEZ.
--- NOTE | 2020-04-16 19:30 | NUR ---
Opening Shift Note Assumed care of patient. No S/S of distress/SOB or pain. Patient non verbal. Bed in lowest locked position, call light within reach, side rails up x2, fall precautions in place, sitter at bedside for patient safety. Will continue to monitor for changes Q1hr and PRN.
[2020-04-16 22:00] VITALS: BP 110/87
[2020-04-16] MEDS ORDERED: INSULIN LANTUS (GLARGINE) 1 /0.01ml (100units/ml) SC SCH (22:00)
[2020-04-16] MEDS: ATORVASTATIN 20 MG TAB PEG SCH (22:27)
[2020-04-16] MEDS: MIRTAZAPINE 30 MG TAB PO SCH (22:27)
[2020-04-16] MEDS: Glucerna 1.2 Cal 1Liter BOTTLE GT SCH (22:50)
[2020-04-17] MEDS: ACCU-CHEK COMFORT CURVE STRIP VI SCH ×5 (00:12→23:47)
[2020-04-17] MEDS: InsuLIN REG 1unit/0.01ml Soln (100units/ml) SC SCH ×5 (00:14→23:47)
[2020-04-17] MEDS: DOXYCYCLINE 100MG/250ML 250 ML IV SCH ×2 (03:57→16:36)
[2020-04-17 05:00] VITALS: BP 110/81
[2020-04-17] MEDS: GABAPENTIN 300 MG CAP PEG SCH ×3 (06:03→22:59)
[2020-04-17] MEDS: cefTRIAXone 1GM/50ML D5W 50 ML IV SCH (08:52)
[2020-04-17 11:08] VITALS: BP 120/91
[2020-04-17] MEDS: METOPROLOL TARTRATE 50 MG TAB PEG SCH ×2 (11:20→22:59)
[2020-04-17] MEDS: FUROSEMIDE 20 MG/2 ML VIAL IV SCH ×2 (11:20→18:20)
[2020-04-17] MEDS: PANTOPRAZOLE 40 MG TAB PO SCH (11:21)
[2020-04-17] MEDS: ENOXAPARIN SOD 40 MG/0.4 ML SYRINGE SC SCH (11:21)
[2020-04-17] MEDS: LORazepam 2MG/ML-1ML VIAL IV SCH ×2 (11:22→22:59)
--- NOTE | 2020-04-17 16:24 | NUR ---
Assessment Patient is a 59-year-old female, who is confused. Patient cognitive abilities are not intact. SW contacted daughter (Sara [phone]), per patient daughter, patient was alert and oriented on (02-11-2020), prior to admission to [facility]. Per patient daughter, she found her mom at home unresponsive on 02-12-2020, patient daughter called 911 for assistance. Per patient daughter, patient is a diabetic, per patient daughter stated that patient was in a diabetic coma prior to admission to [facility]. Per patient daughter, patient has been admitted to [facility] then discharge to [facility], where she is receiving physical, occupational and speech therapy. Per patient daughter, stated that her mom is receiving [employer] and [employer] as income. Per patient daughter, patient has a bed on hold for her post discharge. Per patient daughter, she is requesting that her mom will return to [facility] to resume care and therapy. Per patient daughter, stated that post discharge from [facility], her mom will return home. Per patient daughter, stated that she and her siblings are her mother support system. Per patient daughter, stated that she will provide transportation post discharge. Per patient daughter, she is receptive on receiving POA forms. Discharge planning: Patient will return to [facility] post discharge. SW will provide patient daughter POA forms. Additional post discharge needs are not determined at this moment. Addendum: 04/17/20 at 1626 by CAROLINA JONES Amended: Links added.
[2020-04-17 16:43] VITALS: BP 115/77
--- NOTE | 2020-04-17 19:30 | NUR ---
Opening Shift Note Assumed care of patient. Patient non verbal. No S/S of distress/SOB or pain. Bed in lowest locked position, call light within reach, side rails u x2, fall precautions in place, sitter at bedside for patient safety. Will continue to monitor for changes Q1hr and PRN.
[2020-04-17 22:00] VITALS: BP 97/72
--- NOTE | 2020-04-17 22:05 | NUR ---
Blood sugar Blood sugar low at 49 and repeat was 49. Patient NPO, dextrose 50ml given through IV, see kaleb. Will recheck blood sugar and page hospitalist. Addendum: 04/18/20 at 0054 by BEATA COWART OCA, RN 2: Blood sugar recheck at this time was 260.
[2020-04-17] MEDS: INSULIN LANTUS (GLARGINE) 1 /0.01ml (100units/ml) SC SCH (22:10)
--- NOTE | 2020-04-17 22:40 | NUR ---
Spoke with hospitalist Spoke with VALERIA Bradley in regards to patient's blood sugar. Per hospitalist, okay to hold 2200 lantus and insulin regular at 0000. Will continue to monitor patient.
[2020-04-17] MEDS: ATORVASTATIN 20 MG TAB PEG SCH (22:59)
[2020-04-17] MEDS: MIRTAZAPINE 30 MG TAB PO SCH (23:00)
[2020-04-18] MEDS: DOXYCYCLINE 100MG/250ML 250 ML IV SCH ×2 (03:50→16:20)
[2020-04-18 05:04] VITALS: BP 95/65
[2020-04-18] MEDS: FUROSEMIDE 20 MG/2 ML VIAL IV SCH (06:00)
[2020-04-18 06:03] LABS: Calcium 10.3 mg/dL (8.5-10.1); Potassium 4.6 mmol/L (3.5-5.1)
[2020-04-18] MEDS: InsuLIN REG 1unit/0.01ml Soln (100units/ml) SC SCH ×4 (06:04→23:21)
[2020-04-18] MEDS: ACCU-CHEK COMFORT CURVE STRIP VI SCH ×4 (06:04→23:18)
[2020-04-18 06:05] LABS: BUN/Creatinine Ratio 36.8
[2020-04-18] MEDS: GABAPENTIN 300 MG CAP PEG SCH ×3 (06:05→23:11)
[2020-04-18] MEDS: Glucerna 1.2 Cal 1Liter BOTTLE GT SCH (06:05)
[2020-04-18 06:13] LABS: Cholesterol 124 mg/dL (< 200); Triglycerides 246 mg/dL (< 150)
[2020-04-18 06:15] LABS: HDL Cholesterol 22 mg/dL (40-59); LDL Cholesterol 92 mg/dL (< 100)
[2020-04-18] MEDS: cefTRIAXone 1GM/50ML D5W 50 ML IV SCH (08:27)
[2020-04-18 09:00] VITALS: BP 94/69
[2020-04-18] MEDS: METOPROLOL TARTRATE 50 MG TAB PEG SCH (11:11)
[2020-04-18] MEDS ORDERED: InsuLIN REG 1unit/0.01ml Soln (100units/ml) IV ONE (11:15)
[2020-04-18] MEDS: LORazepam 2MG/ML-1ML VIAL IV SCH ×2 (11:44→23:12)
[2020-04-18] MEDS: ENOXAPARIN SOD 40 MG/0.4 ML SYRINGE SC SCH (11:44)
[2020-04-18] MEDS: PANTOPRAZOLE 40 MG TAB PO SCH (11:44)
[2020-04-18 12:04] VITALS: BP 113/81
--- NOTE | 2020-04-18 12:30 | NUR ---
Spoke to and told her patient's family concerns, they also needed to talk to . said she will call them.
--- NOTE | 2020-04-18 12:52 | NUR ---
Nutrition Followup Note Wt 78 kg Pt was sleeping with sitter at bedside at time of rounds. Pt is still NPO, with a PEG tube, with Glucerna 1.2 running at 60 ml/hr at time of rounds. Est energy needs 6472-3527 kcal (20-23 kcal/kg BW 76.1kg) Est protein needs 61-76g (0.8-1g/kg BW 76.1kg) Will monitor and reassess prn. Labs: Na 148H, BUN 46H, Creat 1.25H, Alb 3.2L, GLUC 314H BM: Pt with no BM today per RN note Skin: BS 14 mod risk, full details in nurse care manager note PES: Inadequate oral intake r/t current medical condition aeb pt with NPO diet order Comments: Will f/u 2-3 days 1) Continue TF to Glucerna 1.2 at a goal rate of 60 ml/hr 2) Advance diet as medically feasible 3) Continue to monitor po status, labs, skin 4) Refer pt to CDE on DC 5) Continue current plan of care
--- NOTE | 2020-04-18 13:21 | NUR ---
told me to hold the insulin one time order of 10 units. Because I told her that patient Blood glucose was 220 and I covered her per protocol with 6 units.
--- NOTE | 2020-04-18 14:11 | NUR ---
EEG- UNABLE TO COMPLETE ELECTROENCEPHALOGRAM, PT RESTLESS AND PULLING OFF LEADS MAKING IT IMPOSSIBLE TO COMPLETE.
--- NOTE | 2020-04-18 15:21 | NUR ---
Spoke to she said that she will discharge patient today. She put a consult to library services coordinator for the SNF patient was before admission. On the consult it says may dc patient today or tomorrow. Awaiting on library services coordinator that will contact patient's SNF
[2020-04-18 16:25] VITALS: BP 98/75
--- NOTE | 2020-04-18 16:57 | NUR ---
Entertainment Lawyer consult was put in by , but socia services did not follow up. I called the social work job titles she said that she will call the SNF tomorrow to follow up and see if patient still has a bed.
--- NOTE | 2020-04-18 16:57 | NUR ---
Called to let her know that when she put in the social work coordinator consult they never followed up. When I called the social work coordinator she said that she will call in the morning to see if the bed is still available for patient.
--- NOTE | 2020-04-18 20:00 | NUR ---
Opening Shift Note Assumed care of patient. PT is not responsive to questions. No S/S of distress/SOB or pain. Instructed on POC and to call for assist PRN, will continue to monitor for changes Q1hr and PRN. Sitter at bedside.
[2020-04-18 20:25] VITALS: BP 119/74
[2020-04-18] MEDS ORDERED: METOPROLOL TARTRATE 25 MG TAB PEG SCH (22:00)
[2020-04-18] MEDS: ATORVASTATIN 20 MG TAB PEG SCH (23:12)
[2020-04-18] MEDS: MIRTAZAPINE 30 MG TAB PO SCH (23:12)
[2020-04-18] MEDS: INSULIN LANTUS (GLARGINE) 1 /0.01ml (100units/ml) SC SCH (23:17)
[2020-04-19] MEDS: DOXYCYCLINE 100MG/250ML 250 ML IV SCH ×2 (04:06→15:27)
[2020-04-19] MEDS: GABAPENTIN 300 MG CAP PEG SCH ×3 (05:15→20:41)
[2020-04-19] MEDS: ACCU-CHEK COMFORT CURVE STRIP VI SCH ×3 (05:15→18:16)
[2020-04-19 05:46] VITALS: BP 128/83
[2020-04-19] MEDS: InsuLIN REG 1unit/0.01ml Soln (100units/ml) SC SCH ×3 (05:59→18:26)
--- NOTE | 2020-04-19 07:07 | NUR ---
OPENING SHIFT NOTE Assumed care of patient from museum host/hostess RN. Sitter at bedside. Patient is unresponsive to questions and aphagic and is very restless. Patient was oriented to person, place, time and situation. She was updated on the plan of care and was unable to verbalize understanding. Patient has a hawk draining clear yellow urine to gravity, no kinks or loops in tubing noted. Patient has a PEG tube in the left upper quadrant running glucerna at 60ml/hr, patient tolerating well. Bed is locked, in the lowest position, side rails are up x3 and call light is in reach.
[2020-04-19] MEDS: METOPROLOL TARTRATE 25 MG TAB PEG SCH ×3 (09:44→22:41)
[2020-04-19] MEDS: cefTRIAXone 1GM/50ML D5W 50 ML IV SCH (09:44)
[2020-04-19] MEDS: PANTOPRAZOLE 40 MG TAB PO SCH (09:45)
[2020-04-19] MEDS: FUROSEMIDE 20 MG/2 ML VIAL IV SCH (09:45)
[2020-04-19] MEDS: LORazepam 2MG/ML-1ML VIAL IV SCH ×2 (09:45→22:38)
[2020-04-19] MEDS: ENOXAPARIN SOD 40 MG/0.4 ML SYRINGE SC SCH (09:45)
--- NOTE | 2020-04-19 10:12 | NUR ---
CALL FROM FAMILY patient's daughter called. After verification of password she was updated on the patient status, plan of care was discussed and she verbalized understanding. All questions answered.
[2020-04-19 12:59] VITALS: BP 94/58
--- NOTE | 2020-04-19 13:14 | NUR ---
MESSAGE LEFT FOR CHILD DEVELOPMENT ASSOCIATE TEACHER Regarding patient discharge and snf placement. awaiting call back.
[2020-04-19 17:00] VITALS: BP 132/80
--- NOTE | 2020-04-19 17:33 | NUR ---
D/C planning Per social service consult for patient to return to [facility]. Faxed clinical information to Facility. Pending on acceptance. Authorization will also have to be obtain from [facility].
--- NOTE | 2020-04-19 17:55 | NUR ---
MELVIN HOSPITALIST for pain medication. Patient has chronic back pain and is on norco 5/325 at home. New orders from Dyllan Iqbal to continue home med.
[2020-04-19] MEDS ORDERED: HYDROcodone-ACET 5/325MG TAB PO PRN (18:00)
--- NOTE | 2020-04-19 19:20 | NUR ---
Opening Shift Note Assumed care of patient after receiving report. Patient is awake with no S/S of distress/SOB or pain. Call light within reach, bed in lowest locked position x3 side rails up, and sitter at bedside for safety. Instructed on POC and to call for assist PRN, will continue to monitor for changes Q1hr and PRN
[2020-04-19] MEDS: MIRTAZAPINE 30 MG TAB PO SCH (22:40)
[2020-04-19] MEDS: ATORVASTATIN 20 MG TAB PEG SCH (22:40)
[2020-04-19] MEDS: INSULIN LANTUS (GLARGINE) 1 /0.01ml (100units/ml) SC SCH (22:59)
[2020-04-20] MEDS: ACCU-CHEK COMFORT CURVE STRIP VI SCH ×4 (00:18→17:58)
[2020-04-20] MEDS: InsuLIN REG 1unit/0.01ml Soln (100units/ml) SC SCH ×4 (00:39→17:59)
[2020-04-20] MEDS: DOXYCYCLINE 100MG/250ML 250 ML IV SCH (03:56)
[2020-04-20 05:00] VITALS: BP 127/91
--- NOTE | 2020-04-20 05:31 | NUR ---
IV insertion/DC IV access obtained, via clean sterile technique by inserting 22 gauge catheter at right hand after 1 attempt. IV secured properly. No trauma to site. Patient tolerated well. IV DC'd from left wrist with clean sterile technique, catheter fully intact. Pressure dressing applied to site. Patient tolerated well.
[2020-04-20] MEDS: Glucerna 1.2 Cal 1Liter BOTTLE GT SCH ×2 (05:42→22:08)
[2020-04-20] MEDS: GABAPENTIN 300 MG CAP PEG SCH ×3 (05:51→20:23)
[2020-04-20 08:59] VITALS: BP 120/69
[2020-04-20] MEDS: PANTOPRAZOLE 40 MG TAB PO SCH (09:49)
[2020-04-20] MEDS: ENOXAPARIN SOD 40 MG/0.4 ML SYRINGE SC SCH (09:49)
[2020-04-20] MEDS: FUROSEMIDE 20 MG/2 ML VIAL IV SCH (09:49)
[2020-04-20] MEDS: METOPROLOL TARTRATE 25 MG TAB PEG SCH ×2 (09:51→22:07)
[2020-04-20] MEDS: LORazepam 2MG/ML-1ML VIAL IV SCH ×2 (10:03→21:17)
--- NOTE | 2020-04-20 11:10 | NUR ---
WOUND CARE NOTE: Wound care in to see patient for skin integrity monitoring. Patient continue resting on air mattress in Rm. 278B. Patient's eyes are closed, respirations even and unlabored. Patient appears to be in no pain using [place] Faces pain Scale. She's max assist in turning and repositioning and her Ubaldo score is 13. Skin assessment done with the assistance of patient's nurse, LEONID Ochoa. No open wound or pressure injury noted. Patient is receiving BID/PRN cleaning and application of Barrier cream to sacral, buttocks as preventative. Repositioned patient for comfort facing her Rt. side, redistributed pressure points with pillows. Patient tolerated well, nurse's aide at bedside. RECOMMENDATION: Continuation of all wound care orders MD prescribed, continue with skin/wound preventative plan of care,continue monitoring by wound care while patient is hospitalized. Addendum: 04/20/20 at 1458 by Chrissy Nolen RN Amended: Links added.
--- NOTE | 2020-04-20 12:44 | NUR ---
Nutrition Followup Note Wt 78.4 kg Pt was awake but not alert. Pt is still with Glucerna 1.2 running at 60 ml/hr. Pt received 818 ml of TF 04/18 per Rn note, TF amount not recorded for 04/19 or 04/20 per Rn note. Pt is awaiting transfer to SNF. Est energy needs 4323-6319 kcal (20-23 kcal/kg BW 76.1kg) Est protein needs 61-76g (0.8-1g/kg BW 76.1kg) Will monitor and reassess prn. Labs: GLUC 248H, BUN 46H, Creat 1.25H, Ca 10.3H, Alb 3.2L BM: Pt with 1 BM 04/18 per RN note Skin: BS 12 high risk, full details in manager care note PES: Inadequate oral intake r/t current medical condition aeb pt with NPO diet order Comments: Will f/u 2-3 days 1) Continue TF to Glucerna 1.2 at a goal rate of 60 ml/hr 2) Advance diet as medically feasible 3) Continue to monitor po status, labs, skin 4) Refer pt to CDE on DC 5) Continue current plan of care
[2020-04-20 13:00] VITALS: BP 109/66
--- NOTE | 2020-04-20 14:26 | NUR ---
LEFT A MESSAGE TO CYLINDER LOADER LORIN TO FOLLOW UP ON SNF PLACEMENT, WAITING FOR CALL BACK.
--- NOTE | 2020-04-20 14:47 | NUR ---
SPOKE WITH [facility] DELIVERY CLERK, SHE IS STILL LOOKING FOR A [facility].
--- NOTE | 2020-04-20 16:24 | NUR ---
D/C Planning Per Tyrone with [facility] they are unable to accommodate patient needs at this time. Faxed clinical information to [facility] and [facility] and [facility] they are unable to accommodate patient needs. Per Devorah with [facility] patient has been accepted and they will have a bed available on Friday04/21/20. Informed , Dr. Antony.
[2020-04-20 17:00] VITALS: BP 109/62
--- NOTE | 2020-04-20 19:30 | NUR ---
Opening Shift Note Assumed care of patient, resting with eyes closed. sitter at bedside. No S/S of distress/SOB or pain. Will continue to monitor for changes Q1hr and PRN.
[2020-04-20] MEDS: MIRTAZAPINE 30 MG TAB PO SCH (21:09)
[2020-04-20] MEDS: INSULIN LANTUS (GLARGINE) 1 /0.01ml (100units/ml) SC SCH (21:09)
[2020-04-20] MEDS: ATORVASTATIN 20 MG TAB PEG SCH (21:10)
[2020-04-20 21:32] VITALS: BP 105/79
--- NOTE | 2020-04-20 22:47 | NUR ---
spoke with the hospitalist regarding pt's temp, new order received
[2020-04-20] MEDS ORDERED: ACETAMINOPHEN 325 MG TAB PO PRN (23:00)
[2020-04-20 23:15] VITALS: BP 118/75
[2020-04-21] MEDS: InsuLIN REG 1unit/0.01ml Soln (100units/ml) SC SCH ×4 (00:44→18:38)
[2020-04-21] MEDS: ACCU-CHEK COMFORT CURVE STRIP VI SCH ×4 (00:44→18:38)
--- NOTE | 2020-04-21 01:00 | NUR ---
Family updated on pt status Daughter of ZANDRA CHIN updated on patient's status and condition. All questions and concerns addressed. verbalized understanding.
[2020-04-21 05:10] VITALS: BP 112/71
[2020-04-21] MEDS: GABAPENTIN 300 MG CAP PEG SCH ×3 (05:52→20:52)
--- NOTE | 2020-04-21 07:33 | NUR ---
closing note endorsed care to day RN, no sign of distress/pain at this time
[2020-04-21 08:54] VITALS: BP 97/70
[2020-04-21] MEDS: METOPROLOL TARTRATE 25 MG TAB PEG SCH ×2 (10:00→23:42)
--- NOTE | 2020-04-21 10:17 | NUR ---
Spoke to to tell him about patient BP of 97/70. He told me to hold the metoprolol but still given the lasix.
[2020-04-21] MEDS: FUROSEMIDE 20 MG/2 ML VIAL IV SCH (10:22)
[2020-04-21] MEDS: ENOXAPARIN SOD 40 MG/0.4 ML SYRINGE SC SCH (10:23)
[2020-04-21] MEDS: PANTOPRAZOLE 40 MG TAB PO SCH (10:23)
[2020-04-21] MEDS: LORazepam 2MG/ML-1ML VIAL IV SCH ×2 (10:26→22:26)
[2020-04-21] MEDS ORDERED: AMPICILLIN 250 MG/5ML ORAL SUSP 200ML GT SCH (12:00)
[2020-04-21 12:34] VITALS: BP 106/80
--- NOTE | 2020-04-21 15:04 | NUR ---
Ampicillin ordered for patient is not available per pharmacy they are unable to make the solution.
--- NOTE | 2020-04-21 15:19 | NUR ---
put in the discharge to SNF order for patient. I called Eli to get an update on patient status to go to [facility], no answer she has not got back to me yet.
[2020-04-21 17:00] VITALS: BP 103/68
--- NOTE | 2020-04-21 17:29 | NUR ---
D/C Planning Per Devorah with [facility] they do not have beds at this time. Contact daughter Micki Ph; [phone] regarding discharge plan. Micki will speak to her siblings and will contact piping design specialist the morning for possible discharge home with home health.
--- NOTE | 2020-04-21 18:21 | NUR ---
When I came in for my shift the patient had no band. clerk secretary called twice for a new band for patient. Still awaiting band.
[2020-04-21] MEDS: AMOXICILLIN/CLAVULAN 500 MG TAB GT SCH ×2 (18:38→22:00)
--- NOTE | 2020-04-21 19:00 | NUR ---
Opening Shift Note Assumed care of patient, awake and alert. No S/S of distress/SOB or pain. Insructed on POC and to callfor assist PRN, will continue to monitor for changes Q1hr and PRN.
--- NOTE | 2020-04-21 19:49 | NUR ---
Spoke to social studies department chair Eli and said that [facility] called her to say that they can no longer accommodate patient they have no beds. Charge nurse aware. Eli is going to follow up with daughters for possible home health
--- NOTE | 2020-04-21 19:50 | NUR ---
Pt name band placed
[2020-04-21] MEDS: MIRTAZAPINE 30 MG TAB PO SCH (22:25)
[2020-04-21] MEDS: ATORVASTATIN 20 MG TAB PEG SCH (22:26)
[2020-04-21] MEDS: INSULIN LANTUS (GLARGINE) 1 /0.01ml (100units/ml) SC SCH (22:27)
--- NOTE | 2020-04-22 00:12 | NUR ---
Family called pt, DAUGHTER Sara, update pt on current status, that pt is calm in bed, turning her q2, and monitoring for any changes. Family member verbalized she is pleased.
[2020-04-22] MEDS: InsuLIN REG 1unit/0.01ml Soln (100units/ml) SC SCH ×4 (00:29→18:21)
[2020-04-22] MEDS: ACCU-CHEK COMFORT CURVE STRIP VI SCH ×4 (00:29→18:21)
[2020-04-22] MEDS: AMOXICILLIN/CLAVULAN 500 MG TAB GT SCH ×3 (06:00→22:59)
[2020-04-22] MEDS: GABAPENTIN 300 MG CAP PEG SCH ×3 (06:00→20:30)
[2020-04-22 06:17] VITALS: BP 105/65
--- NOTE | 2020-04-22 07:13 | NUR ---
Care endorsed to AM RN Pt is calm, resting in bed, at lowest height. No complaints visible. Changed Glucerna feeding tubing and bottle for AM shift RN. Sitter is present in room.
[2020-04-22] MEDS: METOPROLOL TARTRATE 25 MG TAB PEG SCH ×2 (10:12→22:54)
[2020-04-22] MEDS: PANTOPRAZOLE 40 MG TAB PO SCH (10:12)
[2020-04-22] MEDS: ENOXAPARIN SOD 40 MG/0.4 ML SYRINGE SC SCH (10:13)
[2020-04-22] MEDS: FUROSEMIDE 20 MG/2 ML VIAL IV SCH (10:30)
[2020-04-22] MEDS: LORazepam 2MG/ML-1ML VIAL IV SCH ×2 (10:42→22:59)
--- NOTE | 2020-04-22 11:50 | NUR ---
Nutrition Followup Note Wt 79.2 kg Pt was awake but not alert or oriented with sitters at bedside. Pt is with Glucerna 1.2 running at 60 ml/hr. Pt is awaiting transfer to SNF. Est energy needs 9288-6238 kcal (20-23 kcal/kg BW 76.1kg) Est protein needs 61-76g (0.8-1g/kg BW 76.1kg) Will monitor and reassess prn. Labs: GLUC 293H, Alb 3.2L BM: Pt with constipation per RN note Skin: BS 13 mod risk, full details in acute care surgeon note PES: Inadequate oral intake r/t current medical condition aeb pt with NPO diet order Comments: Will f/u 2-3 days 1) Continue TF to Glucerna 1.2 at a goal rate of 60 ml/hr 2) Advance diet as medically feasible 3) Continue to monitor po status, labs, skin 4) Refer pt to CDE on DC 5) Continue current plan of care
[2020-04-22 13:00] VITALS: BP 106/65
[2020-04-22 17:14] VITALS: BP 99/65
--- NOTE | 2020-04-22 19:21 | NUR ---
PT NONVERBAL, PT RESTLESS, ATIVAN GIVEN WITH MILD RESTING. WITT IN PLACE. SITTER IN ROOM. OFFERS NO OTHER NEEDS.
[2020-04-22 22:00] VITALS: BP 107/60
[2020-04-22] MEDS: ATORVASTATIN 20 MG TAB PEG SCH (22:55)
[2020-04-22] MEDS: MIRTAZAPINE 30 MG TAB PO SCH (22:55)
[2020-04-22] MEDS: INSULIN LANTUS (GLARGINE) 1 /0.01ml (100units/ml) SC SCH (22:59)
[2020-04-23] MEDS: InsuLIN REG 1unit/0.01ml Soln (100units/ml) SC SCH ×4 (00:31→18:00)
[2020-04-23 04:49] VITALS: BP 96/57
[2020-04-23] MEDS: ACCU-CHEK COMFORT CURVE STRIP VI SCH ×4 (05:51→18:00)
[2020-04-23] MEDS: GABAPENTIN 300 MG CAP PEG SCH ×3 (05:51→21:00)
[2020-04-23] MEDS: AMOXICILLIN/CLAVULAN 500 MG TAB GT SCH ×3 (05:51→22:32)
[2020-04-23 07:14] LABS: Basophils # (auto) 0 10 ^3/uL (0-0.2); Basophils % (auto) 0.4 % (0.0-2.0); Eosinophils # (auto) 0 10 ^3/uL (0-0.8); Eosinophils % (auto) 0.9 % (0.0-7.0); Hematocrit 40.3 % (36.0-46.0); Lymphocytes # (auto) 1.8 10 ^3/uL (0.4-5.4); Lymphocytes % (auto) 34.9 % (10.0-50.0); Mean Corpuscular Hemoglobin 31.4 pg (28.0-32.0); Mean Corpuscular Hgb Conc. 32.2 g/dL (32.0-36.0); Mean Corpuscular Volume 97.7 fL (80.0-100.0); Monocytes # (auto) 0.7 10 ^3/uL (0-1.3); Neutrophils # (auto) 2.7 10 ^3/uL (1.6-8.6); Neutrophils % (auto) 50.8 % (37.0-80.0); Nucleated Red Blood Cells % 0.2 %; Platelet Count (auto) 192 10^3/uL (140-450); Red Blood Cells 4.13 10^6/uL (4.0-5.20); Red Cell Distribution Width 14.7 % (11.8-14.3); White Blood Cell 5.3 10^3/uL (4.4-10.8)
[2020-04-23 07:26] LABS: Potassium 4.2 mmol/L (3.5-5.1)
[2020-04-23 07:35] LABS: BUN/Creatinine Ratio 34.1; Calcium 10.1 mg/dL (8.5-10.1)
[2020-04-23 09:00] VITALS: BP 125/79
[2020-04-23] MEDS: FUROSEMIDE 20 MG/2 ML VIAL IV SCH (10:00)
[2020-04-23] MEDS: PANTOPRAZOLE 40 MG TAB PO SCH (11:20)
[2020-04-23] MEDS: LORazepam 2MG/ML-1ML VIAL IV SCH ×2 (11:20→22:32)
[2020-04-23] MEDS: METOPROLOL TARTRATE 25 MG TAB PEG SCH ×2 (11:23→22:32)
[2020-04-23] MEDS: ENOXAPARIN SOD 40 MG/0.4 ML SYRINGE SC SCH (11:24)
[2020-04-23 13:00] VITALS: BP 94/71
--- NOTE | 2020-04-23 15:10 | NUR ---
ON CASE POWER REGULATOR: SPOKE WITH LORIN REGARDING UPDATE ON PATIENT TRANSFER TO [facility] FACILITY, PER LORIN SHE HAD SPOKE WITH MD ON FRIDAY ABOUT POSSIBLE BIOMEDICAL ANALYTICAL SCIENTIST CARE VS. HOME WITH HOME HEALTH. SHE WAS AWAITING A RESPONSE FOR THE PATIENTS DAUGHTER ABOUT HOME VS. PLACEMENT. PER DR. ENCINAS PATIENT NEEDS TO GO TO A SNF SHE NEEDS TOO MUCH HELP TO BE ABLE TO GO HOME AT THIS TIME. PER LORIN WE WILL NEED A PHYSICAL THERAPY EVALUATION AND SHE WILL ATTEMPT TO PLACE THE PATIENT ON FRIDAY AT SNF. ORDERS FOR PT EVAL PLACED PER PROTOCOL.
[2020-04-23 17:00] VITALS: BP 110/65
--- NOTE | 2020-04-23 18:00 | NUR ---
no change with pt no communication no eye contact. restless. hawk in place, leave hawk in place for now per physician. sitter in room.
[2020-04-23 22:00] VITALS: BP 113/80
[2020-04-23] MEDS: MIRTAZAPINE 30 MG TAB PO SCH (22:31)
[2020-04-23] MEDS: INSULIN LANTUS (GLARGINE) 1 /0.01ml (100units/ml) SC SCH (22:31)
[2020-04-23] MEDS: ATORVASTATIN 20 MG TAB PEG SCH (22:32)
[2020-04-24] MEDS: InsuLIN REG 1unit/0.01ml Soln (100units/ml) SC SCH ×4 (00:37→18:29)
[2020-04-24 05:00] VITALS: BP 110/69
[2020-04-24] MEDS: ACCU-CHEK COMFORT CURVE STRIP VI SCH ×5 (06:00→23:57)
--- NOTE | 2020-04-24 06:15 | NUR ---
Pt activity. Patient seems more alert this night. Pt made eye contact throughout the night. Only able to nod once when asked throughout the night. Pt non verbal.
[2020-04-24] MEDS: AMOXICILLIN/CLAVULAN 500 MG TAB GT SCH ×3 (06:36→22:18)
[2020-04-24] MEDS: GABAPENTIN 300 MG CAP PEG SCH ×3 (06:36→20:34)
[2020-04-24 08:35] VITALS: BP 111/67
--- NOTE | 2020-04-24 09:15 | NUR ---
Patient is unable to participate in P.T. safely this morning . Will attempt P.T. later.
[2020-04-24] MEDS: ENOXAPARIN SOD 40 MG/0.4 ML SYRINGE SC SCH (10:00)
[2020-04-24] MEDS: METOPROLOL TARTRATE 25 MG TAB PEG SCH ×2 (10:00→22:17)
[2020-04-24] MEDS: PANTOPRAZOLE 40 MG TAB PO SCH (10:00)
[2020-04-24] MEDS: LORazepam 2MG/ML-1ML VIAL IV SCH ×2 (11:00→22:18)
--- NOTE | 2020-04-24 15:18 | NUR ---
re-assessment Per ss consult patient is stable for transfer to SNF. Per ss note by Eli musa to call her over the weekend for possible home with home health. I called patients daughter Darek and left a message for a return call back regarding discharge plan. Waiting senior electrical controls engineer back now. Addendum: 04/24/20 at 1519 by Bella Weston Amended: Links added.
--- NOTE | 2020-04-24 16:18 | NUR ---
re-assessment Raghavendrastephon called me back and informed me she wants skilled placement for patient. Per Darek family has agreed for patient to get rehab and then return home with family on discharge from SNF. I informed Darek that I would work on SNF placement at [facility] in the morning. Darek verbalized understanding and agreed to snf placement to [facility] or where patient can be placed. I will follow up with Darek on 04/25/2020. Addendum: 04/25/20 at 1525 by Bella JONES Amended: Links added.
--- NOTE | 2020-04-24 18:00 | NUR ---
PT RESTING IN BED. WITT IN PLACE, SITTER IN ROOM BG ELEVATED 200'S INSULIN GIVEN PER ORDERS. PEG TUBE IN PLACE, APPEARS TO BE TOLERATING GLUCERNA WELL. OFFERS NO OTHER NEEDS.
[2020-04-24] MEDS ORDERED: FUROSEMIDE 20 MG/2 ML VIAL IV ONE (18:30)
[2020-04-24 22:00] VITALS: BP 102/58
[2020-04-24] MEDS: INSULIN LANTUS (GLARGINE) 1 /0.01ml (100units/ml) SC SCH (22:15)
[2020-04-24] MEDS: ATORVASTATIN 20 MG TAB PEG SCH (22:18)
[2020-04-24] MEDS: MIRTAZAPINE 30 MG TAB PO SCH (22:19)
[2020-04-25] MEDS: InsuLIN REG 1unit/0.01ml Soln (100units/ml) SC SCH ×4 (00:01→18:00)
[2020-04-25 05:00] VITALS: BP 93/64
[2020-04-25] MEDS: ACCU-CHEK COMFORT CURVE STRIP VI SCH ×3 (05:18→18:00)
[2020-04-25] MEDS: GABAPENTIN 300 MG CAP PEG SCH ×3 (05:18→20:29)
[2020-04-25] MEDS: AMOXICILLIN/CLAVULAN 500 MG TAB GT SCH (06:00)
--- NOTE | 2020-04-25 06:54 | NUR ---
END OF SHIFT NOTE WILL ENDORSE CARE TO DAY SHIFT RN. NO S/S OF DISTRESS OR SOB
[2020-04-25] MEDS ORDERED: FUROSEMIDE 20 MG/2 ML VIAL IV ONE (08:45)
[2020-04-25] MEDS ORDERED: LACTULOSE 20Gm/30ML SOLN PEG ONE (08:45)
[2020-04-25 09:00] VITALS: BP 110/65
[2020-04-25] MEDS: METOPROLOL TARTRATE 25 MG TAB PEG SCH ×2 (10:00→21:30)
[2020-04-25] MEDS: ENOXAPARIN SOD 40 MG/0.4 ML SYRINGE SC SCH (10:00)
[2020-04-25] MEDS: PANTOPRAZOLE 40 MG TAB PO SCH (10:00)
[2020-04-25] MEDS: LORazepam 2MG/ML-1ML VIAL IV SCH ×2 (10:00→21:36)
--- NOTE | 2020-04-25 10:42 | NUR ---
I faxed SNF order to [facility]-requesting authorization for [facility] and for transportation.
--- NOTE | 2020-04-25 11:43 | NUR ---
Nutrition Followup Note Wt 80.0 kg Pt was awake but not alert or oriented with sitters at bedside. Pt is with Glucerna 1.2 running at 60 ml/hr providing 1728 kcals and 86 proteins. Pt is awaiting transfer to SNF. Est energy needs 5376-5355 kcal (20-23 kcal/kg BW 76.1kg), Est protein needs 61-76g (0.8-1g/kg BW 76.1kg). Will monitor and reassess prn. Labs: POC GLU 221 H BM: Pt with constipation 1 BM 04/17 per RN note Skin: BS 18 mod risk, full details in nanny caregiver note PES: Inadequate oral intake r/t current medical condition aeb pt with NPO diet order Comments: Will f/u 2-3 days 1) Continue TF to Glucerna 1.2 at a goal rate of 60 ml/hr 2) Advance diet as medically feasible 3) Continue to monitor po status, labs, skin 4) Refer pt to CDE on DC 5) Continue current plan of care
--- NOTE | 2020-04-25 11:47 | NUR ---
I called [facility] discharge nurse Juliet [phone] to request authorization for [place] and for transportation-she will give me a call back once her coordinator has put it in the system.
[2020-04-25] MEDS ORDERED: LACTULOSE 20Gm/30ML SOLN PO SCH (12:00)
[2020-04-25 13:00] VITALS: BP 98/65
--- NOTE | 2020-04-25 14:51 | NUR ---
re-assessment MD order for SNF has been sent to [facility]. Addi Mills she has accepted patient to room 405C and Dr Morales is the accepting MD. Christine cyanide case hardener is working on auth from [facility]. Addendum: 04/25/20 at 1453 by Bella JONES Amended: Links added.
--- NOTE | 2020-04-25 14:57 | NUR ---
I received a call from [facility] discharge nurse Juliet-authorization number for [facility] is [id number], and authorization number for transportation is [id number] relayed this information to social work assistant Blela.
--- NOTE | 2020-04-25 15:22 | NUR ---
re-assessment Patient has authorization in place for [facility] and for transportation with [facility] transport [phone]. I have requested a 5pm pickup. Khushi JAQUEZ has been notified as well as Darek taveras daughter. Addendum: 04/25/20 at 1525 by Bella Weston SS Amended: Links added.
--- NOTE | 2020-04-25 15:34 | NUR ---
re-assessment Darek taveras daughter left me a message stating not to transfer patient to [facility]. Per Raghavendrastephon she wants [facility]. I have notified Khushi JAQUEZ not to transfer patient. Khushi verbalized understanding. Addendum: 04/25/20 at 1539 by Bella JONES Amended: Links added.
--- NOTE | 2020-04-25 16:19 | NUR ---
re-assessment Patient MD order for SNF has been re-directed to [facility] per daughter Jacola. Benitez SW1 will follow up in the morning. Addendum: 04/25/20 at 1623 by Bella Weston SS Amended: Links added.
--- NOTE | 2020-04-25 16:55 | NUR ---
Bella from called to notifiy myself of daughter's cancellation of [facility], paged Dr. Antony no call back at this time. notified SARAH Abreu et [facility] transportation of cancellation. P requested Hospital tax ID #, unable to provide, denied any further assistance. offers no other needs.
--- NOTE | 2020-04-25 18:00 | NUR ---
pt had 2 lg bm's soft brown. cleaned peg tube area, dryed glucerna. dc on hold at this time due to daughter unhappy with [facility]. mohinie nurse to resume care.
[2020-04-25] MEDS: INSULIN LANTUS (GLARGINE) 1 /0.01ml (100units/ml) SC SCH (21:34)
[2020-04-25] MEDS: ATORVASTATIN 20 MG TAB PEG SCH (21:35)
[2020-04-25] MEDS: MIRTAZAPINE 30 MG TAB PO SCH (21:37)
[2020-04-25 22:00] VITALS: BP 104/67
[2020-04-26] MEDS: InsuLIN REG 1unit/0.01ml Soln (100units/ml) SC SCH ×3 (00:13→11:48)
[2020-04-26] MEDS: ACCU-CHEK COMFORT CURVE STRIP VI SCH ×3 (00:14→11:47)
[2020-04-26 05:00] VITALS: BP 92/63
[2020-04-26] MEDS: GABAPENTIN 300 MG CAP PEG SCH (05:22)
--- NOTE | 2020-04-26 06:52 | NUR ---
END OF SHIFT NOTE WILL ENDORSE CARE TO DAY SHIFT RN. NO S/S OF DISTRESS OR SOB
[2020-04-26 09:00] VITALS: BP 96/62
[2020-04-26] MEDS: LORazepam 2MG/ML-1ML VIAL IV SCH (09:03)
[2020-04-26] MEDS: ENOXAPARIN SOD 40 MG/0.4 ML SYRINGE SC SCH (09:03)
[2020-04-26] MEDS: METOPROLOL TARTRATE 25 MG TAB PEG SCH (09:04)
[2020-04-26] MEDS: PANTOPRAZOLE 40 MG TAB PO SCH (10:00)
--- NOTE | 2020-04-26 10:00 | NUR ---
D/C Planning Placed call to [facility]. Order was never received. Refaxed order to [facility]. Per Heath with facility patient has been accepted to room 3 bed d accepting , Dr. Noel. [employer] transportation will transport patient to facility via gurney at 14:00. Informed RN Lilo.
[2020-04-26 12:09] VITALS: BP 96/62
--- NOTE | 2020-04-26 12:09 | NUR ---
I called [facility] discharge nurse Juliet and left message letting her know that patient will be going to [facility], not [place]-I asked if authorization numbers will remain the same-awaiting return call.
--- NOTE | 2020-04-26 12:09 | NUR ---
Transfer Notification Daughter Sara notified of mothers transfer to [facility]. Phone number and room number given to daughter.
--- NOTE | 2020-04-26 13:46 | NUR ---
Report Given to Reyna at [facility] by Villa JAQUEZ. Patient is going to room 3D.
--- NOTE | 2020-04-26 14:09 | NUR ---
Discharge instructions given as ordered. Medication reconciliation form completed and copy given to patient.IV removed with catheter intact, pressure dressing applied, hawk catheter removed. Telemetry unit returned to ICU. Patient taken to vehicle via stretcher with all personal belongings, accompanied by staff. No distress noted at time of departure.
--- NOTE | 2020-04-26 14:38 | NUR ---
I received a call back from [facility] discharge nurse Juliet-the authorization for [facility] is [id number].
== END 2020-04-26 14:08 | DRG 637 ==
LOC: EDUNIT# 18:49 → EDBD 18:49 → ER 18:51 → TELE 18:52 → TELE-WESTW 04-13 08:49
PROVIDERS: ADMIT Nurse Practitioner; ATTEND Internal Medicine Nephrology
DX: E11.649 Type 2 diabetes mellitus with hypoglycemia without coma (principal); G93.41 Metabolic encephalopathy; J81.0 Acute pulmonary edema; I50.33 Acute on chronic diastolic (congestive) heart failure; J18.9 Pneumonia, unspecified organism; J96.21 Acute and chronic respiratory failure with hypoxia; E87.0 Hyperosmolality and hypernatremia; N39.0 Urinary tract infection, site not specified; F23 Brief psychotic disorder; J98.11 Atelectasis; I42.2 Other hypertrophic cardiomyopathy; I13.0 Hypertensive heart and chronic kidney disease with heart failure and stage 1 through stage 4 chronic kidney disease, or unspecified chronic kidney disease; N17.9 Acute kidney failure, unspecified; Z66 Do not resuscitate; E86.0 Dehydration; E83.51 Hypocalcemia; E83.52 Hypercalcemia; J43.9 Emphysema, unspecified; F09 Unspecified mental disorder due to known physiological condition; D89.2 Hypergammaglobulinemia, unspecified; E11.22 Type 2 diabetes mellitus with diabetic chronic kidney disease; E11.42 Type 2 diabetes mellitus with diabetic polyneuropathy; E78.00 Pure hypercholesterolemia, unspecified; F17.210 Nicotine dependence, cigarettes, uncomplicated; F41.9 Anxiety disorder, unspecified; I25.10 Atherosclerotic heart disease of native coronary artery without angina pectoris; N18.9 Chronic kidney disease, unspecified; Z79.4 Long term (current) use of insulin; Z80.49 Family history of malignant neoplasm of other genital organs; Z82.3 Family history of stroke; Z82.49 Family history of ischemic heart disease and other diseases of the circulatory system; Z83.3 Family history of diabetes mellitus; Z87.442 Personal history of urinary calculi; Z93.1 Gastrostomy status; Z88.5 Allergy status to narcotic agent; Z88.6 Allergy status to analgesic agent; Z91.040 Latex allergy status; Z98.51 Tubal ligation status
CPT/HCPCS: 36415; 36600; 70450; 71045; 71275; 80048; 80053; 80061; 80074; 80307; 81001; 82140; 82306; 82570; 82784; 82805; 82962; 83735; 83880; 83883; 83970; 84100; 84155; 84156; 84165; 84443; 84484; 85025; 85379; 86334; 86335; 86703; 87040; 87081; 87086; 93005; 93306; 93970; 96361; 96365; 96375; 97163; G0378; J0696; J1815; J3490